=== PATIENT | female | born 1965 | race Caucasian/White ===

== ENCOUNTER 2017-09-19 16:44 | Inpatient (IN) | payer OTHER ==
[2017-09-19 21:20] LABS: ADD MAN DIFF? NO
[2017-09-19 21:26] LABS: WHITE BLOOD COUNT 5.8 10^3/ul (4.8-10.8)
[2017-09-19 21:26] LABS: BASOPHILS % 0.5 % (0.0-2.0); EOSINOPHILS # 0.2 10^3/ul (0.0-0.5); EOSINOPHILS % 2.7 % (0.0-7.0); HEMATOCRIT 31.7 % (37.0-47.0); HEMOGLOBIN 10.1 g/dl (12.0-16.0); LYMPHOCYTES # 1.1 10^3/ul (0.8-2.9); LYMPHOCYTES % 18.5 % (15.0-51.0); MEAN CORPUSCULAR HEMOGLOBIN 29.4 pg (29.0-33.0); MEAN CORPUSCULAR HGB CONC 31.9 g/dl (32.0-37.0); MEAN CORPUSCULAR VOLUME 92.4 fl (82.0-101.0); MEAN PLATELET VOLUME 10.1 fl (7.4-10.4); MONOCYTE # 0.5 10^3/ul (0.3-0.9); MONOCYTES % 8.2 % (0.0-11.0); NEUTROPHILS % 69.4 % (39.0-77.0); PLATELET COUNT 158 10^3/UL (140-415); RED BLOOD COUNT 3.43 10^6/ul (4.20-5.40); RED CELL DISTRIBUTION WIDTH 15.4 % (11.5-14.5)
[2017-09-19 21:47] LABS: ALANINE AMINOTRANSFERASE 32 IU/L (13-69); ALBUMIN 4.6 g/dl (3.3-4.9); ALBUMIN/GLOBULIN RATIO 1.39; ALKALINE PHOSPHATASE 67 IU/L (42-121); ANION GAP 17 (8-16); ASPARTATE AMINO TRANSFERASE 28 IU/L (15-46); BILIRUBIN,INDIRECT 0.6 mg/dl (0-1.1); BILIRUBIN,TOTAL 0.6 mg/dl (0.2-1.3); BLOOD UREA NITROGEN 48 mg/dl (7-20); CALCIUM 9.5 mg/dl (8.4-10.2); CARBON DIOXIDE 22 mmol/L (21-31); CHLORIDE 109 mmol/L (97-110); CREATINE KINASE 56 IU/L (23-200); CREATININE 2.49 mg/dl (0.44-1.00); GLUCOSE 123 mg/dl (70-220); SODIUM 142 mmol/L (135-144); TOTAL PROTEIN 7.9 g/dl (6.1-8.1)
[2017-09-19 21:50] LABS: INR 3.02; PROTIME 32.2 Sec (11.9-14.9); PT RATIO 2.5
[2017-09-19 21:51] LABS: PARTIAL THROMBOPLASTIN TIME 43.8 Sec (25.0-35.0)
[2017-09-19 21:58] LABS: CK INDEX 0.8; CK-MB 0.47 ng/ml (0.0-2.4); TROPONIN-I < 0.010 ng/ml (0.000-0.120)
[2017-09-19] MEDS: ALBUTEROL 0.5% (NEB) 2.5 MG/0.5 ML AMP INH (23:26)
[2017-09-19] MEDS: CA CHLORIDE 10% 10 ML SYRINGE IV (23:40)
[2017-09-19] MEDS: NA BICARBONATE 8.4% 50 ML SYG IV (23:40)
[2017-09-19] MEDS: NA POLYST SULFON 15 GM/60 ML BTL PO (23:46)
[2017-09-20] MEDS ORDERED: DOCUSATE SODIUM 100 MG CAP PO
[2017-09-20] MEDS ORDERED: morphine 2 MG INJ IV
[2017-09-20] MEDS ORDERED: ONDANSETRON 4 MG INJ IV
[2017-09-20] MEDS ORDERED: BISACODYL (EC) 5 MG TAB PO
[2017-09-20] MEDS ORDERED: NACL 0.9% 3 ML SYG IV
[2017-09-20] MEDS: FUROSEMIDE 40 MG INJ IV (00:10)
[2017-09-20 00:31] LABS: URINE BLOOD (Dip) POC Trace-intact (NEGATIVE); URINE GLUCOSE (Dip) POC Negative (NEGATIVE); URINE KETONES (Dip) POC Negative (NEGATIVE); URINE LEUKOCYTE EST (Dip) POC Negative (NEGATIVE); URINE NITRITE (Dip) POC Negative (NEGATIVE); URINE TOTAL PROTEIN POC 1+ (NEGATIVE)
[2017-09-20 02:25] LABS: OSMOLALITY 314 mOsm/kg (280-295)
[2017-09-20] MEDS: ALBUMIN HUMAN 25% 100 ML IV ×2 (02:43→04:04)
[2017-09-20 03:20] LABS: ANION GAP 18 (8-16); BLOOD UREA NITROGEN 47 mg/dl (7-20); CALCIUM 10.9 mg/dl (8.4-10.2); CARBON DIOXIDE 24 mmol/L (21-31); CHLORIDE 108 mmol/L (97-110); CREATININE 2.26 mg/dl (0.44-1.00); GLUCOSE 201 mg/dl (70-220); POTASSIUM 5.8 mmol/L (3.5-5.1); SODIUM 144 mmol/L (135-144)
[2017-09-20] MEDS ORDERED: GLUCOSE GEL 15 GRAM TUBE BUCCAL (03:30)
[2017-09-20] MEDS ORDERED: GLUCOSE GEL 15 GRAM TUBE PO ×2 (03:30)
[2017-09-20] MEDS ORDERED: HYDROCODONE/APAP (5/325) TAB PO (03:30)
[2017-09-20] MEDS ORDERED: GLUCAGON 1 MG INJ IM (03:30)
[2017-09-20] MEDS ORDERED: DEXTROSE 50% 50 ML SYRINGE IV ×2 (03:30)
[2017-09-20] MEDS: NA POLYST SULFON 15 GM/60 ML BTL PO (04:01)
[2017-09-20] MEDS: LEVOTHYROXINE 50 MCG TAB PO (06:08)
[2017-09-20] MEDS: FUROSEMIDE 40 MG TAB PO ×2 (06:08→17:49)
[2017-09-20] MEDS: INSULIN ASPART [NOVOLOG] 3 ML PEN SC ×5 (08:00→21:29)
[2017-09-20 09:26] LABS: ADD MAN DIFF? NO
[2017-09-20 09:33] LABS: HEMATOCRIT 27.6 % (37.0-47.0); HEMOGLOBIN 8.7 g/dl (12.0-16.0); MEAN CORPUSCULAR HEMOGLOBIN 29.3 pg (29.0-33.0); MEAN CORPUSCULAR HGB CONC 31.5 g/dl (32.0-37.0); MEAN CORPUSCULAR VOLUME 92.9 fl (82.0-101.0); RED BLOOD COUNT 2.97 10^6/ul (4.20-5.40)
[2017-09-20 09:34] LABS: BASOPHILS % 0.6 % (0.0-2.0); EOSINOPHILS # 0.1 10^3/ul (0.0-0.5); EOSINOPHILS % 2.8 % (0.0-7.0); LYMPHOCYTES # 1.1 10^3/ul (0.8-2.9); LYMPHOCYTES % 22.6 % (15.0-51.0); MEAN PLATELET VOLUME 10.7 fl (7.4-10.4); MONOCYTE # 0.5 10^3/ul (0.3-0.9); MONOCYTES % 9.4 % (0.0-11.0); NEUTROPHIL # 3.2 10^3/ul (1.6-7.5); PLATELET COUNT 135 10^3/UL (140-415); RED CELL DISTRIBUTION WIDTH 15.5 % (11.5-14.5)
[2017-09-20] MEDS: DIGOXIN 0.125 MG TAB PO ×2 (09:43→12:43)
[2017-09-20 09:57] LABS: HEMOGLOBIN A1C 9.4 % (0-5.9)
[2017-09-20 10:17] LABS: ALANINE AMINOTRANSFERASE 32 IU/L (13-69); ALBUMIN 4.6 g/dl (3.3-4.9); ALBUMIN/GLOBULIN RATIO 1.53; ALKALINE PHOSPHATASE 52 IU/L (42-121); ANION GAP 19 (8-16); ASPARTATE AMINO TRANSFERASE 29 IU/L (15-46); BILIRUBIN,INDIRECT 0.8 mg/dl (0-1.1); BILIRUBIN,TOTAL 0.8 mg/dl (0.2-1.3); BLOOD UREA NITROGEN 42 mg/dl (7-20); CARBON DIOXIDE 23 mmol/L (21-31); CHLORIDE 108 mmol/L (97-110); CREATININE 1.93 mg/dl (0.44-1.00); GLUCOSE 105 mg/dl (70-220); MAGNESIUM 2.2 mg/dl (1.7-2.5); SODIUM 145 mmol/L (135-144); TOTAL PROTEIN 7.6 g/dl (6.1-8.1)
[2017-09-20 11:13] LABS: B-TYPE NATRIURETIC PEPTIDE 1740 PG/ML (0-125)
[2017-09-20 11:53] LABS: ADD UMIC YES; UR ASCORBIC ACID 40 mg/dL (NEGATIVE); UR BILIRUBIN (Dip) NEGATIVE (NEGATIVE); UR BLOOD (Dip) NEGATIVE (NEGATIVE); UR CLARITY CLEAR (CLEAR); UR COLOR YELLOW (YELLOW); UR GLUCOSE (Dip) 1+ mg/dL (NEGATIVE); UR KETONES (Dip) NEGATIVE (NEGATIVE); UR LEUKOCYTE ESTERASE (Dip) NEGATIVE Leu/ul (NEGATIVE); UR NITRITE (Dip) NEGATIVE (NEGATIVE); UR RBC 1 /HPF (0-5); UR SPECIFIC GRAVITY (Dip) 1.013 (1.003-1.030); UR TOTAL PROTEIN (Dip) 1+ mg/dl (NEGATIVE); UR UROBILINOGEN (Dip) NEGATIVE (NEGATIVE); UR WBC 1 /HPF (0-5)
[2017-09-20 12:28] LABS: IRON 79 ug/dl (35-150)
[2017-09-20 12:37] LABS: % IRON SATURATION 25 % SAT (22-52); TOTAL IRON BINDING CAPACITY 316 ug/dl (241-421)
[2017-09-20 12:44] LABS: OSMOLALITY,URINE 454 mOsm/kg (250-1200); SODIUM,URINE RANDOM 92 mmol/L (30-90)
[2017-09-20 12:44] LABS: CREATININE,URINE RANDOM 83.06 mg/dl (20-320)
[2017-09-20 15:27] LABS: ANION GAP 16 (8-16); BLOOD UREA NITROGEN 41 mg/dl (7-20); CALCIUM 9.7 mg/dl (8.4-10.2); CARBON DIOXIDE 26 mmol/L (21-31); CHLORIDE 105 mmol/L (97-110); CREATININE 1.72 mg/dl (0.44-1.00); GLUCOSE 255 mg/dl (70-220); POTASSIUM 5.4 mmol/L (3.5-5.1); SODIUM 142 mmol/L (135-144)
[2017-09-20 18:10] LABS: ADD UMIC YES; UR ASCORBIC ACID 20 mg/dL (NEGATIVE); UR BILIRUBIN (Dip) NEGATIVE (NEGATIVE); UR BLOOD (Dip) NEGATIVE (NEGATIVE); UR CLARITY CLEAR (CLEAR); UR COLOR YELLOW (YELLOW); UR GLUCOSE (Dip) 1+ mg/dL (NEGATIVE); UR KETONES (Dip) NEGATIVE (NEGATIVE); UR LEUKOCYTE ESTERASE (Dip) NEGATIVE Leu/ul (NEGATIVE); UR NITRITE (Dip) NEGATIVE (NEGATIVE); UR RBC 1 /HPF (0-5); UR SPECIFIC GRAVITY (Dip) 1.012 (1.003-1.030); UR TOTAL PROTEIN (Dip) 1+ mg/dl (NEGATIVE); UR UROBILINOGEN (Dip) NEGATIVE (NEGATIVE); UR WBC 1 /HPF (0-5)
[2017-09-20] MEDS: WARFARIN 3 MG TAB PO (18:45)
[2017-09-20] MEDS: ATORVASTATIN 10 MG TAB PO (21:15)
[2017-09-20] MEDS: INSULIN GLARGINE [LANTus] (100 UNITS/ML) SYG SC (21:35)
[2017-09-20] MEDS: ACETAMINOPHEN 325 MG TAB PO (22:17)
[2017-09-21] MEDS ORDERED: ACCU-CHEK XX (02:00)
[2017-09-21] MEDS: ACCU-CHEK XX (02:26)
[2017-09-21] MEDS: FUROSEMIDE 40 MG TAB PO ×2 (06:14→17:23)
[2017-09-21] MEDS: LEVOTHYROXINE 50 MCG TAB PO (06:14)
[2017-09-21] MEDS: INSULIN ASPART [NOVOLOG] 3 ML PEN SC ×6 (08:18→17:18)
[2017-09-21 08:44] LABS: ADD MAN DIFF? NO
[2017-09-21 09:01] LABS: WHITE BLOOD COUNT 4.5 10^3/ul (4.8-10.8)
[2017-09-21 09:01] LABS: BASOPHILS % 0.7 % (0.0-2.0); EOSINOPHILS # 0.2 10^3/ul (0.0-0.5); EOSINOPHILS % 3.3 % (0.0-7.0); HEMATOCRIT 29.9 % (37.0-47.0); HEMOGLOBIN 9.3 g/dl (12.0-16.0); LYMPHOCYTES % 22.5 % (15.0-51.0); MEAN CORPUSCULAR HEMOGLOBIN 28.8 pg (29.0-33.0); MEAN CORPUSCULAR HGB CONC 31.1 g/dl (32.0-37.0); MEAN CORPUSCULAR VOLUME 92.6 fl (82.0-101.0); MEAN PLATELET VOLUME 10.4 fl (7.4-10.4); MONOCYTE # 0.5 10^3/ul (0.3-0.9); MONOCYTES % 10.8 % (0.0-11.0); NEUTROPHIL # 2.8 10^3/ul (1.6-7.5); NEUTROPHILS % 62.3 % (39.0-77.0); PLATELET COUNT 148 10^3/UL (140-415); RED BLOOD COUNT 3.23 10^6/ul (4.20-5.40); RED CELL DISTRIBUTION WIDTH 15.3 % (11.5-14.5)
[2017-09-21 09:09] LABS: ANION GAP 18 (8-16); BLOOD UREA NITROGEN 37 mg/dl (7-20); CALCIUM 9.6 mg/dl (8.4-10.2); CARBON DIOXIDE 26 mmol/L (21-31); CHLORIDE 104 mmol/L (97-110); CREATININE 1.39 mg/dl (0.44-1.00); GLUCOSE 153 mg/dl (70-220); MAGNESIUM 1.7 mg/dl (1.7-2.5); PHOSPHORUS 5.3 mg/dl (2.5-4.9); POTASSIUM 4.5 mmol/L (3.5-5.1); SODIUM 143 mmol/L (135-144)
[2017-09-21 09:19] LABS: INR 2.45; PROTIME 27.2 Sec (11.9-14.9); PT RATIO 2.1
[2017-09-21] MEDS: ACETAMINOPHEN 325 MG TAB PO (11:13)
[2017-09-21 16:52] LABS: CREATININE, RANDOM URINE 105 mg/dL (20-320); MICROALBUMIN 17.4 mg/dL; MICROALBUMIN/CREATININE RATIO 166 (<30)
[2017-09-21] MEDS: WARFARIN 3 MG TAB PO (17:23)
== END 2017-09-21 19:57 | disposition home or self-care (01) | DRG 683 ==
LOC: MS4 09-20 01:23 → E/R 16:44
DX: N17.9 Acute kidney failure, unspecified (principal); I13.0 Hypertensive heart and chronic kidney disease with heart failure and stage 1 through stage 4 chronic kidney disease, or unspecified chronic kidney disease; E87.0 Hyperosmolality and hypernatremia; E87.5 Hyperkalemia; E11.22 Type 2 diabetes mellitus with diabetic chronic kidney disease; R16.1 Splenomegaly, not elsewhere classified; I50.9 Heart failure, unspecified; I48.2 Chronic atrial fibrillation; D64.9 Anemia, unspecified; N18.4 Chronic kidney disease, stage 4 (severe); Z79.4 Long term (current) use of insulin; Z79.01 Long term (current) use of anticoagulants; Z95.2 Presence of prosthetic heart valve; Z90.49 Acquired absence of other specified parts of digestive tract
CPT/HCPCS: 71045; 74176; 76775; 80048; 80053; 81001; 81003; 82043; 82306; 82550; 82553; 82652; 82962; 83036; 83540; 83735; 83880; 83930; 83935; 84100; 84155; 84300; 84443; 84484; 85025; 85610; 85730; 93005; 93306; 94644; 96374; 96375; 99285-25

== ENCOUNTER 2017-10-22 07:21 | Day surgery (SDC) | payer OTHER ==
[2017-10-22] MEDS ORDERED: ONDANSETRON 4 MG INJ (08:13)
[2017-10-22] MEDS ORDERED: PROPOFOL 20 ML (09:00)
== END 2017-10-22 11:34 | disposition home or self-care (01) ==
LOC: GIL 07:21
DX: R19.5 Other fecal abnormalities (principal); K64.8 Other hemorrhoids; K64.4 Residual hemorrhoidal skin tags; I10 Essential (primary) hypertension; E78.5 Hyperlipidemia, unspecified; E11.9 Type 2 diabetes mellitus without complications
CPT/HCPCS: 45378; 82962

== ENCOUNTER 2018-05-27 16:33 | Inpatient (IN) | payer OTHER ==
[2018-05-27] MEDS: INSULIN ASPART [NOVOLOG] 3 ML PEN SC ×3 (08:00→18:00)
[2018-05-27 18:06] LABS: ADD MAN DIFF? NO
[2018-05-27 18:10] LABS: WHITE BLOOD COUNT 6.4 10^3/ul (4.8-10.8)
[2018-05-27 18:10] LABS: BASOPHILS % 0.6 % (0.0-2.0); EOSINOPHILS # 0.1 10^3/ul (0.0-0.5); EOSINOPHILS % 1.7 % (0.0-7.0); HEMATOCRIT 44.5 % (37.0-47.0); HEMOGLOBIN 13.4 g/dl (12.0-16.0); LYMPHOCYTES % 15.2 % (15.0-51.0); MEAN CORPUSCULAR HEMOGLOBIN 25.3 pg (29.0-33.0); MEAN CORPUSCULAR HGB CONC 30.1 g/dl (32.0-37.0); MEAN PLATELET VOLUME 10.3 fl (7.4-10.4); MONOCYTE # 0.6 10^3/ul (0.3-0.9); MONOCYTES % 9.7 % (0.0-11.0); NEUTROPHIL # 4.6 10^3/ul (1.6-7.5); NEUTROPHILS % 72.3 % (39.0-77.0); PLATELET COUNT 288 10^3/UL (140-415); RED CELL DISTRIBUTION WIDTH 16.7 % (11.5-14.5)
[2018-05-27] MEDS: FUROSEMIDE 40 MG INJ IV (18:12)
[2018-05-27 18:24] LABS: INR 3.47; PARTIAL THROMBOPLASTIN TIME 43.3 Sec (23.0-35.0); PROTIME 34.9 Sec (11.9-14.9); PT RATIO 2.7
[2018-05-27 18:29] LABS: ALANINE AMINOTRANSFERASE 15 IU/L (13-69); ALBUMIN 3.9 g/dl (3.3-4.9); ALBUMIN/GLOBULIN RATIO 1.05; ALKALINE PHOSPHATASE 96 IU/L (42-121); ANION GAP 14 (5-13); ASPARTATE AMINO TRANSFERASE 21 IU/L (15-46); BILIRUBIN,INDIRECT 0.9 mg/dl (0-1.1); BILIRUBIN,TOTAL 0.9 mg/dl (0.2-1.3); BLOOD UREA NITROGEN 18 mg/dl (7-20); CALCIUM 9.1 mg/dl (8.4-10.2); CARBON DIOXIDE 31 mmol/L (21-31); CHLORIDE 94 mmol/L (97-110); CREATININE 0.84 mg/dl (0.44-1.00); Estimated GFR > 60 mL/min (>60); LIPASE 156 U/L (23-300); POTASSIUM 4.7 mmol/L (3.5-5.1); SODIUM 139 mmol/L (135-144); TOTAL PROTEIN 7.6 g/dl (6.1-8.1)
[2018-05-27 18:32] LABS: GLUCOSE 403 mg/dl (70-220)
[2018-05-27 18:53] LABS: TROPONIN-I < 0.012 ng/ml (0.000-0.120)
[2018-05-27] MEDS ORDERED: ACETAMINOPHEN 325 MG TAB PO (19:00)
[2018-05-27] MEDS ORDERED: ONDANSETRON 4 MG INJ IV ×2 (19:00→20:30)
[2018-05-27] MEDS: ASPIRIN 81 MG TAB PO (19:12)
[2018-05-27] MEDS: INSULIN LISPRO 100 UNIT/ML VIAL SC (19:14)
[2018-05-27] MEDS ORDERED: NACL 0.9% 3 ML SYG IV (20:30)
[2018-05-27] MEDS ORDERED: BISACODYL (EC) 5 MG TAB PO (20:30)
[2018-05-27] MEDS ORDERED: DOCUSATE SODIUM 100 MG CAP PO (20:30)
[2018-05-27] MEDS ORDERED: INSULIN GLARGINE [LANtus] 3 ML PEN SC ×2 (21:00→22:08)
[2018-05-27] MEDS: ATORVASTATIN 10 MG TAB PO (23:20)
[2018-05-28] MEDS: INSULIN GLARGINE [LANTus] (100 UNITS/ML) SYG SC (01:52)
[2018-05-28] MEDS: ACCU-CHEK XX (02:44)
[2018-05-28 06:12] LABS: ADD MAN DIFF? NO; HAAIG REFLEX REFLEX FILED
[2018-05-28 06:24] LABS: BASOPHILS % 0.7 % (0.0-2.0); EOSINOPHILS # 0.2 10^3/ul (0.0-0.5); HEMATOCRIT 40.4 % (37.0-47.0); LYMPHOCYTES # 0.9 10^3/ul (0.8-2.9); LYMPHOCYTES % 15.6 % (15.0-51.0); MEAN CORPUSCULAR HEMOGLOBIN 25.2 pg (29.0-33.0); MEAN CORPUSCULAR HGB CONC 29.7 g/dl (32.0-37.0); MEAN CORPUSCULAR VOLUME 84.7 fl (82.0-101.0); MEAN PLATELET VOLUME 10.4 fl (7.4-10.4); MONOCYTE # 0.6 10^3/ul (0.3-0.9); MONOCYTES % 10.6 % (0.0-11.0); NEUTROPHIL # 4.2 10^3/ul (1.6-7.5); NEUTROPHILS % 69.8 % (39.0-77.0); PLATELET COUNT 268 10^3/UL (140-415); RED BLOOD COUNT 4.77 10^6/ul (4.20-5.40)
[2018-05-28 06:35] LABS: INR 3.68; PROTIME 36.5 Sec (11.9-14.9); PT RATIO 2.9
[2018-05-28] MEDS: FUROSEMIDE 40 MG INJ IV ×2 (06:52→17:22)
[2018-05-28 06:59] LABS: ALANINE AMINOTRANSFERASE 11 IU/L (13-69); ALBUMIN 3.5 g/dl (3.3-4.9); ALBUMIN/GLOBULIN RATIO 1.02; ALKALINE PHOSPHATASE 83 IU/L (42-121); ANION GAP 13 (5-13); ASPARTATE AMINO TRANSFERASE 19 IU/L (15-46); BILIRUBIN,INDIRECT 0.6 mg/dl (0-1.1); BILIRUBIN,TOTAL 0.6 mg/dl (0.2-1.3); BLOOD UREA NITROGEN 20 mg/dl (7-20); CALCIUM 8.9 mg/dl (8.4-10.2); CARBON DIOXIDE 30 mmol/L (21-31); CHLORIDE 97 mmol/L (97-110); CHOL/HDL RATIO 5.8 RATIO; CHOLESTEROL 99 mg/dl (100-200); CREATININE 0.85 mg/dl (0.44-1.00); Estimated GFR > 60 mL/min (>60); GLUCOSE 221 mg/dl (70-220); HDL CHOLESTEROL 17 mg/dl (37-92); LDL CHOLESTEROL,CALCULATED 51 mg/dl; MAGNESIUM 1.9 mg/dl (1.7-2.5); POTASSIUM 4.1 mmol/L (3.5-5.1); SODIUM 140 mmol/L (135-144); TOTAL PROTEIN 6.9 g/dl (6.1-8.1); TRIGLYCERIDES 156 mg/dl (0-149)
[2018-05-28 07:05] LABS: HEPATITIS B SURFACE ANTIGEN NEGATIVE (NEGATIVE)
[2018-05-28 07:23] LABS: HEPATITIS B CORE ANTIBODY NEGATIVE (NEGATIVE); HEPATITIS C VIRAL ANTIBODY NEGATIVE (NEGATIVE)
[2018-05-28 07:23] LABS: HEPATITIS B SURFACE ANTIBODY NEGATIVE (NEGATIVE)
[2018-05-28] MEDS: INSULIN ASPART [NOVOLOG] 3 ML PEN SC ×8 (08:01→21:00)
[2018-05-28] MEDS: LORATADINE 10 MG TAB PO (08:59)
[2018-05-28] MEDS: FERROUS SULFATE (EC) 325 MG TAB PO (08:59)
[2018-05-28] MEDS: LISINOPRIL 5 MG TAB PO (09:00)
[2018-05-28] MEDS: SPIRONOLACTONE 25 MG TAB PO ×2 (10:05→21:01)
[2018-05-28 10:14] LABS: FREE T3 4.55 pg/ml (2.77-5.27); FREE T4 (FREE THYROXINE) 1.59 ng/dl (0.64-1.79)
[2018-05-28 10:15] LABS: B-TYPE NATRIURETIC PEPTIDE 4170 PG/ML (0-125)
[2018-05-28] MEDS: ACETAMINOPHEN 325 MG TAB PO (10:32)
[2018-05-28] MEDS: DIGOXIN 0.125 MG TAB PO (12:24)
[2018-05-28] MEDS ORDERED: GLUCAGON 1 MG INJ IM (13:00)
[2018-05-28] MEDS ORDERED: GLUCOSE GEL 15 GRAM TUBE BUCCAL (13:00)
[2018-05-28] MEDS ORDERED: DEXTROSE 50% 50 ML SYRINGE IV ×2 (13:00)
[2018-05-28] MEDS ORDERED: GLUCOSE GEL 15 GRAM TUBE PO ×2 (13:00)
[2018-05-28 14:58] LABS: CREATINE KINASE 35 IU/L (23-200)
[2018-05-28 15:11] LABS: CK INDEX 1.2; CK-MB 0.42 ng/ml (0.0-2.4); TROPONIN-I < 0.012 ng/ml (0.000-0.120)
[2018-05-28 18:17] LABS: ADD UMIC YES; UR ASCORBIC ACID NEGATIVE (NEGATIVE); UR BACTERIA FEW /HPF (NONE SEEN); UR BILIRUBIN (Dip) NEGATIVE (NEGATIVE); UR BLOOD (Dip) 1+ mg/dL (NEGATIVE); UR CLARITY SLIGHTLY CLOUDY (CLEAR); UR COLOR YELLOW (YELLOW); UR GLUCOSE (Dip) NEGATIVE (NEGATIVE); UR KETONES (Dip) NEGATIVE (NEGATIVE); UR LEUKOCYTE ESTERASE (Dip) TRACE Leu/ul (NEGATIVE); UR NITRITE (Dip) NEGATIVE (NEGATIVE); UR RBC 3 /HPF (0-5); UR SPECIFIC GRAVITY (Dip) 1.019 (1.003-1.030); UR SQUAMOUS EPITHELIAL CELL FEW /HPF (FEW); UR TOTAL PROTEIN (Dip) 2+ mg/dl (NEGATIVE); UR UROBILINOGEN (Dip) NEGATIVE (NEGATIVE); UR WBC 3 /HPF (0-5)
[2018-05-28 18:43] LABS: CREATINE KINASE 32 IU/L (23-200)
[2018-05-28 18:55] LABS: CK INDEX 1.4; CK-MB 0.44 ng/ml (0.0-2.4); TROPONIN-I < 0.012 ng/ml (0.000-0.120)
[2018-05-28 19:47] LABS: CREATININE,URINE RANDOM 188.26 mg/dl (20-320)
[2018-05-28 19:47] LABS: SODIUM,URINE RANDOM 28 mmol/L (30-90)
[2018-05-28] MEDS ORDERED: INSULIN GLARGINE [LANtus] 3 ML PEN SC (20:00)
[2018-05-28] MEDS: METOLAZONE 5 MG TAB PO (21:01)
[2018-05-28] MEDS: ATORVASTATIN 10 MG TAB PO (21:01)
[2018-05-29] MEDS: ACCU-CHEK XX (02:00)
[2018-05-29 05:32] LABS: ADD MAN DIFF? NO
[2018-05-29 05:38] LABS: WHITE BLOOD COUNT 5.8 10^3/ul (4.8-10.8)
[2018-05-29 05:38] LABS: BASOPHIL # 0.1 10^3/ul (0.0-0.1); EOSINOPHILS # 0.2 10^3/ul (0.0-0.5); EOSINOPHILS % 2.9 % (0.0-7.0); HEMOGLOBIN 12.3 g/dl (12.0-16.0); LYMPHOCYTES # 1.2 10^3/ul (0.8-2.9); LYMPHOCYTES % 21.1 % (15.0-51.0); MEAN CORPUSCULAR HEMOGLOBIN 25.1 pg (29.0-33.0); MEAN CORPUSCULAR VOLUME 83.7 fl (82.0-101.0); MEAN PLATELET VOLUME 10.3 fl (7.4-10.4); MONOCYTE # 0.6 10^3/ul (0.3-0.9); MONOCYTES % 10.9 % (0.0-11.0); NEUTROPHIL # 3.7 10^3/ul (1.6-7.5); NEUTROPHILS % 63.8 % (39.0-77.0); PLATELET COUNT 280 10^3/UL (140-415); RED CELL DISTRIBUTION WIDTH 17.1 % (11.5-14.5)
[2018-05-29] MEDS: FUROSEMIDE 40 MG INJ IV ×2 (05:43→17:27)
[2018-05-29 05:57] LABS: INR 3.13; PROTIME 32.2 Sec (11.9-14.9); PT RATIO 2.5
[2018-05-29 06:13] LABS: PHOSPHORUS 4.8 mg/dl (2.5-4.9)
[2018-05-29 06:13] LABS: MAGNESIUM 1.8 mg/dl (1.7-2.5)
[2018-05-29 06:16] LABS: ALANINE AMINOTRANSFERASE 13 IU/L (13-69); ALBUMIN 3.3 g/dl (3.3-4.9); ALBUMIN/GLOBULIN RATIO 0.97; ALKALINE PHOSPHATASE 82 IU/L (42-121); ANION GAP 7 (5-13); ASPARTATE AMINO TRANSFERASE 24 IU/L (15-46); BILIRUBIN,INDIRECT 0.7 mg/dl (0-1.1); BILIRUBIN,TOTAL 0.7 mg/dl (0.2-1.3); BLOOD UREA NITROGEN 23 mg/dl (7-20); CALCIUM 8.9 mg/dl (8.4-10.2); CARBON DIOXIDE 33 mmol/L (21-31); CHLORIDE 99 mmol/L (97-110); CREATININE 0.94 mg/dl (0.44-1.00); Estimated GFR > 60 mL/min (>60); GLUCOSE 80 mg/dl (70-220); POTASSIUM 4.3 mmol/L (3.5-5.1); SODIUM 139 mmol/L (135-144); TOTAL PROTEIN 6.7 g/dl (6.1-8.1)
[2018-05-29] MEDS: INSULIN ASPART [NOVOLOG] 3 ML PEN SC ×7 (08:00→20:27)
[2018-05-29] MEDS: FERROUS SULFATE (EC) 325 MG TAB PO (08:11)
[2018-05-29] MEDS: SPIRONOLACTONE 25 MG TAB PO ×2 (08:11→20:27)
[2018-05-29] MEDS: LISINOPRIL 5 MG TAB PO (08:12)
[2018-05-29] MEDS: LORATADINE 10 MG TAB PO (08:12)
[2018-05-29] MEDS: INSULIN GLARGINE [LANTus] (100 UNITS/ML) SYG SC (08:22)
[2018-05-29] MEDS: ACETAZOLAMIDE 500 MG INJ IV (11:25)
[2018-05-29] MEDS: DIGOXIN 0.125 MG TAB PO (12:33)
[2018-05-29 17:51] LABS: CREATININE, RANDOM URINE 177 mg/dL (20-275); MICROALBUMIN 31.6 mg/dL; MICROALBUMIN/CREATININE RATIO 179 (<30)
[2018-05-29] MEDS: ATORVASTATIN 10 MG TAB PO (20:27)
[2018-05-30] MEDS: ACCU-CHEK XX (02:00)
[2018-05-30 05:40] LABS: ADD MAN DIFF? NO
[2018-05-30 05:49] LABS: WHITE BLOOD COUNT 5.4 10^3/ul (4.8-10.8)
[2018-05-30 05:49] LABS: BASOPHIL # 0.1 10^3/ul (0.0-0.1); BASOPHILS % 1.1 % (0.0-2.0); EOSINOPHILS # 0.1 10^3/ul (0.0-0.5); EOSINOPHILS % 2.4 % (0.0-7.0); HEMATOCRIT 39.8 % (37.0-47.0); LYMPHOCYTES % 18.9 % (15.0-51.0); MEAN CORPUSCULAR HEMOGLOBIN 25.4 pg (29.0-33.0); MEAN CORPUSCULAR HGB CONC 30.2 g/dl (32.0-37.0); MEAN CORPUSCULAR VOLUME 84.3 fl (82.0-101.0); MEAN PLATELET VOLUME 10.3 fl (7.4-10.4); MONOCYTE # 0.7 10^3/ul (0.3-0.9); MONOCYTES % 12.7 % (0.0-11.0); NEUTROPHIL # 3.5 10^3/ul (1.6-7.5); NEUTROPHILS % 64.5 % (39.0-77.0); PLATELET COUNT 277 10^3/UL (140-415); RED BLOOD COUNT 4.72 10^6/ul (4.20-5.40); RED CELL DISTRIBUTION WIDTH 17.1 % (11.5-14.5)
[2018-05-30] MEDS: FUROSEMIDE 40 MG INJ IV ×2 (06:00→17:52)
[2018-05-30 06:09] LABS: ALANINE AMINOTRANSFERASE 14 IU/L (13-69); ALBUMIN 3.4 g/dl (3.3-4.9); ALBUMIN/GLOBULIN RATIO 1.06; ALKALINE PHOSPHATASE 90 IU/L (42-121); ANION GAP 7 (5-13); ASPARTATE AMINO TRANSFERASE 27 IU/L (15-46); BILIRUBIN,INDIRECT 0.8 mg/dl (0-1.1); BILIRUBIN,TOTAL 0.8 mg/dl (0.2-1.3); BLOOD UREA NITROGEN 25 mg/dl (7-20); CALCIUM 9.1 mg/dl (8.4-10.2); CARBON DIOXIDE 34 mmol/L (21-31); CHLORIDE 98 mmol/L (97-110); Estimated GFR 58 mL/min (>60); GLUCOSE 66 mg/dl (70-220); POTASSIUM 4.1 mmol/L (3.5-5.1); SODIUM 139 mmol/L (135-144); TOTAL PROTEIN 6.6 g/dl (6.1-8.1)
[2018-05-30 06:12] LABS: INR 2.16; PROTIME 24.2 Sec (11.9-14.9); PT RATIO 1.9
[2018-05-30] MEDS: INSULIN GLARGINE [LANTus] (100 UNITS/ML) SYG SC ×2 (08:00→08:42)
[2018-05-30] MEDS: INSULIN ASPART [NOVOLOG] 3 ML PEN SC ×5 (08:00→20:16)
[2018-05-30] MEDS: ACETAZOLAMIDE 500 MG INJ IV (08:27)
[2018-05-30] MEDS: LORATADINE 10 MG TAB PO (08:30)
[2018-05-30] MEDS: FERROUS SULFATE (EC) 325 MG TAB PO (08:30)
[2018-05-30] MEDS: LISINOPRIL 5 MG TAB PO (08:31)
[2018-05-30] MEDS: SPIRONOLACTONE 25 MG TAB PO ×2 (08:32→20:16)
[2018-05-30] MEDS ORDERED: ACETAZOLAMIDE 500 MG INJ IV (09:00)
[2018-05-30] MEDS: WARFARIN 3 MG TAB PO (11:44)
[2018-05-30] MEDS: DIGOXIN 0.125 MG TAB PO (13:12)
[2018-05-30] MEDS: BARIUM SULF 2% 450 ML BTL (BERRY SMOOTHIE) PO (16:12)
[2018-05-30] MEDS: ATORVASTATIN 10 MG TAB PO (20:16)
[2018-05-31] MEDS: ACCU-CHEK XX (02:00)
[2018-05-31] MEDS: FUROSEMIDE 40 MG INJ IV ×2 (05:45→17:32)
[2018-05-31 06:07] LABS: ADD MAN DIFF? NO
[2018-05-31 06:12] LABS: BASOPHIL # 0.1 10^3/ul (0.0-0.1); BASOPHILS % 1.2 % (0.0-2.0); EOSINOPHILS # 0.2 10^3/ul (0.0-0.5); EOSINOPHILS % 3.5 % (0.0-7.0); HEMATOCRIT 38.8 % (37.0-47.0); HEMOGLOBIN 11.7 g/dl (12.0-16.0); LYMPHOCYTES # 0.9 10^3/ul (0.8-2.9); LYMPHOCYTES % 18.4 % (15.0-51.0); MEAN CORPUSCULAR HEMOGLOBIN 25.4 pg (29.0-33.0); MEAN CORPUSCULAR HGB CONC 30.2 g/dl (32.0-37.0); MEAN CORPUSCULAR VOLUME 84.2 fl (82.0-101.0); MEAN PLATELET VOLUME 10.5 fl (7.4-10.4); MONOCYTE # 0.6 10^3/ul (0.3-0.9); MONOCYTES % 12.1 % (0.0-11.0); NEUTROPHIL # 3.1 10^3/ul (1.6-7.5); NEUTROPHILS % 64.4 % (39.0-77.0); PLATELET COUNT 286 10^3/UL (140-415); RED BLOOD COUNT 4.61 10^6/ul (4.20-5.40); RED CELL DISTRIBUTION WIDTH 17.3 % (11.5-14.5)
[2018-05-31 06:12] LABS: WHITE BLOOD COUNT 4.9 10^3/ul (4.8-10.8)
[2018-05-31 06:43] LABS: INR 1.93; PROTIME 22.1 Sec (11.9-14.9); PT RATIO 1.7
[2018-05-31 06:58] LABS: ALANINE AMINOTRANSFERASE 16 IU/L (13-69); ALBUMIN 3.6 g/dl (3.3-4.9); ALBUMIN/GLOBULIN RATIO 1.02; ALKALINE PHOSPHATASE 101 IU/L (42-121); ANION GAP 12 (5-13); ASPARTATE AMINO TRANSFERASE 25 IU/L (15-46); BILIRUBIN,INDIRECT 0.7 mg/dl (0-1.1); BILIRUBIN,TOTAL 0.7 mg/dl (0.2-1.3); BLOOD UREA NITROGEN 26 mg/dl (7-20); CALCIUM 9.1 mg/dl (8.4-10.2); CARBON DIOXIDE 31 mmol/L (21-31); CHLORIDE 95 mmol/L (97-110); CREATININE 1.04 mg/dl (0.44-1.00); Estimated GFR 55 mL/min (>60); GLUCOSE 148 mg/dl (70-220); POTASSIUM 4.1 mmol/L (3.5-5.1); SODIUM 138 mmol/L (135-144); TOTAL PROTEIN 7.1 g/dl (6.1-8.1)
[2018-05-31] MEDS: INSULIN ASPART [NOVOLOG] 3 ML PEN SC ×4 (07:45→20:18)
[2018-05-31] MEDS: FERROUS SULFATE (EC) 325 MG TAB PO (08:29)
[2018-05-31] MEDS: ACETAZOLAMIDE 500 MG INJ IV (08:29)
[2018-05-31] MEDS: SPIRONOLACTONE 25 MG TAB PO ×2 (08:30→20:11)
[2018-05-31] MEDS: LORATADINE 10 MG TAB PO (08:30)
[2018-05-31] MEDS: LISINOPRIL 5 MG TAB PO (08:31)
[2018-05-31] MEDS: HYDROCODONE/APAP (5/325) TAB PO (09:49)
[2018-05-31] MEDS: LIDOCAINE 1% (MPF) 5 ML VIAL (12:23)
[2018-05-31] MEDS: SOD CHLORIDE 0.9% 250 ML IV* (13:28)
[2018-05-31] MEDS: DIGOXIN 0.125 MG TAB PO (13:42)
[2018-05-31] MEDS: ATORVASTATIN 10 MG TAB PO (20:09)
[2018-05-31 20:27] LABS: TYPE AND SCREEN 1 1
[2018-06-01] MEDS: ACCU-CHEK XX (02:23)
[2018-06-01 06:22] LABS: ADD MAN DIFF? NO
[2018-06-01 06:26] LABS: WHITE BLOOD COUNT 4.8 10^3/ul (4.8-10.8)
[2018-06-01 06:27] LABS: BASOPHIL # 0.1 10^3/ul (0.0-0.1); EOSINOPHILS # 0.1 10^3/ul (0.0-0.5); EOSINOPHILS % 2.9 % (0.0-7.0); HEMATOCRIT 40.1 % (37.0-47.0); HEMOGLOBIN 12.1 g/dl (12.0-16.0); LYMPHOCYTES # 1.1 10^3/ul (0.8-2.9); LYMPHOCYTES % 22.1 % (15.0-51.0); MEAN CORPUSCULAR HEMOGLOBIN 25.5 pg (29.0-33.0); MEAN CORPUSCULAR HGB CONC 30.2 g/dl (32.0-37.0); MEAN CORPUSCULAR VOLUME 84.4 fl (82.0-101.0); MEAN PLATELET VOLUME 10.7 fl (7.4-10.4); MONOCYTE # 0.5 10^3/ul (0.3-0.9); MONOCYTES % 10.3 % (0.0-11.0); NEUTROPHIL # 3.1 10^3/ul (1.6-7.5); NEUTROPHILS % 63.3 % (39.0-77.0); PLATELET COUNT 273 10^3/UL (140-415); RED BLOOD COUNT 4.75 10^6/ul (4.20-5.40); RED CELL DISTRIBUTION WIDTH 17.2 % (11.5-14.5)
[2018-06-01 06:36] LABS: AMMONIA < 9 umol/l (9-30)
[2018-06-01 06:52] LABS: ALANINE AMINOTRANSFERASE 17 IU/L (13-69); ALBUMIN 3.6 g/dl (3.3-4.9); ALBUMIN/GLOBULIN RATIO 1.16; ALKALINE PHOSPHATASE 104 IU/L (42-121); ANION GAP 11 (5-13); ASPARTATE AMINO TRANSFERASE 23 IU/L (15-46); BILIRUBIN,INDIRECT 0.9 mg/dl (0-1.1); BILIRUBIN,TOTAL 0.9 mg/dl (0.2-1.3); BLOOD UREA NITROGEN 28 mg/dl (7-20); CALCIUM 9.3 mg/dl (8.4-10.2); CARBON DIOXIDE 31 mmol/L (21-31); CHLORIDE 96 mmol/L (97-110); CREATININE 1.09 mg/dl (0.44-1.00); Estimated GFR 53 mL/min (>60); GLUCOSE 211 mg/dl (70-220); POTASSIUM 4.4 mmol/L (3.5-5.1); SODIUM 138 mmol/L (135-144); TOTAL PROTEIN 6.7 g/dl (6.1-8.1)
[2018-06-01] MEDS: FUROSEMIDE 40 MG INJ IV ×2 (06:58→17:15)
[2018-06-01 07:21] LABS: INR 1.68; PROTIME 19.9 Sec (11.9-14.9); PT RATIO 1.6
[2018-06-01 07:26] LABS: PHOSPHORUS 4.4 mg/dl (2.5-4.9)
[2018-06-01] MEDS: LORATADINE 10 MG TAB PO (08:59)
[2018-06-01] MEDS: SPIRONOLACTONE 25 MG TAB PO ×2 (08:59→20:08)
[2018-06-01] MEDS: FERROUS SULFATE (EC) 325 MG TAB PO (08:59)
[2018-06-01] MEDS: LISINOPRIL 5 MG TAB PO (09:00)
[2018-06-01] MEDS: INSULIN ASPART [NOVOLOG] 3 ML PEN SC ×4 (09:14→20:15)
[2018-06-01] MEDS: DIGOXIN 0.125 MG TAB PO (12:32)
[2018-06-01] MEDS: SILDENAFIL 20 MG TAB PO ×2 (13:38→20:09)
[2018-06-01] MEDS: LINAGLIPTIN 5 MG TABLET PO (13:38)
[2018-06-01] MEDS ORDERED: INSULIN ASPART [NOVOLOG] 3 ML PEN SC (18:00)
[2018-06-01] MEDS: ATORVASTATIN 10 MG TAB PO (20:09)
[2018-06-01] MEDS: ACETAMINOPHEN 325 MG TAB PO (20:14)
[2018-06-02] MEDS: ACCU-CHEK XX ×2 (02:28)
[2018-06-02] MEDS: FUROSEMIDE 40 MG INJ IV ×2 (05:34→17:12)
[2018-06-02 05:37] LABS: ADD MAN DIFF? NO
[2018-06-02 05:40] LABS: BASOPHIL # 0.1 10^3/ul (0.0-0.1); BASOPHILS % 0.8 % (0.0-2.0); EOSINOPHILS # 0.2 10^3/ul (0.0-0.5); EOSINOPHILS % 2.5 % (0.0-7.0); HEMATOCRIT 38.8 % (37.0-47.0); HEMOGLOBIN 11.7 g/dl (12.0-16.0); LYMPHOCYTES # 1.3 10^3/ul (0.8-2.9); MEAN CORPUSCULAR HEMOGLOBIN 25.3 pg (29.0-33.0); MEAN CORPUSCULAR HGB CONC 30.2 g/dl (32.0-37.0); MEAN CORPUSCULAR VOLUME 83.8 fl (82.0-101.0); MEAN PLATELET VOLUME 10.3 fl (7.4-10.4); MONOCYTE # 0.9 10^3/ul (0.3-0.9); MONOCYTES % 14.3 % (0.0-11.0); NEUTROPHIL # 3.6 10^3/ul (1.6-7.5); NEUTROPHILS % 59.9 % (39.0-77.0); PLATELET COUNT 248 10^3/UL (140-415); RED BLOOD COUNT 4.63 10^6/ul (4.20-5.40); RED CELL DISTRIBUTION WIDTH 17.4 % (11.5-14.5)
[2018-06-02 06:25] LABS: ANION GAP 12 (5-13); BLOOD UREA NITROGEN 34 mg/dl (7-20); CALCIUM 9.3 mg/dl (8.4-10.2); CARBON DIOXIDE 31 mmol/L (21-31); CHLORIDE 95 mmol/L (97-110); CREATININE 1.05 mg/dl (0.44-1.00); Estimated GFR 55 mL/min (>60); GLUCOSE 214 mg/dl (70-220); PHOSPHORUS 4.3 mg/dl (2.5-4.9); POTASSIUM 4.1 mmol/L (3.5-5.1); SODIUM 138 mmol/L (135-144)
[2018-06-02] MEDS: INSULIN ASPART [NOVOLOG] 3 ML PEN SC ×5 (07:35→21:50)
[2018-06-02] MEDS: LISINOPRIL 5 MG TAB PO (08:16)
[2018-06-02] MEDS: SPIRONOLACTONE 25 MG TAB PO ×2 (08:17→20:42)
[2018-06-02] MEDS: LORATADINE 10 MG TAB PO (08:17)
[2018-06-02] MEDS: FERROUS SULFATE (EC) 325 MG TAB PO (08:17)
[2018-06-02] MEDS: SILDENAFIL 20 MG TAB PO ×2 (08:17→12:47)
[2018-06-02] MEDS: LINAGLIPTIN 5 MG TABLET PO (08:18)
[2018-06-02] MEDS: INSULIN GLARGINE [LANTus] (100 UNITS/ML) SYG SC (11:56)
[2018-06-02] MEDS: DIGOXIN 0.125 MG TAB PO (12:47)
[2018-06-02] MEDS: ATORVASTATIN 10 MG TAB PO (20:42)
[2018-06-02] MEDS ORDERED: INSULIN ASPART [NOVOLOG] 3 ML PEN SC (22:00)
[2018-06-02] MEDS: ACETAMINOPHEN 325 MG TAB PO (23:51)
[2018-06-03] MEDS: ACCU-CHEK XX (02:20)
[2018-06-03 06:08] LABS: ADD MAN DIFF? NO
[2018-06-03 06:29] LABS: WHITE BLOOD COUNT 5.6 10^3/ul (4.8-10.8)
[2018-06-03 06:29] LABS: BASOPHILS % 0.7 % (0.0-2.0); EOSINOPHILS # 0.1 10^3/ul (0.0-0.5); EOSINOPHILS % 2.3 % (0.0-7.0); HEMATOCRIT 38.5 % (37.0-47.0); HEMOGLOBIN 11.8 g/dl (12.0-16.0); LYMPHOCYTES # 1.2 10^3/ul (0.8-2.9); LYMPHOCYTES % 21.4 % (15.0-51.0); MEAN CORPUSCULAR HEMOGLOBIN 25.3 pg (29.0-33.0); MEAN CORPUSCULAR HGB CONC 30.6 g/dl (32.0-37.0); MEAN CORPUSCULAR VOLUME 82.6 fl (82.0-101.0); MEAN PLATELET VOLUME 10.7 fl (7.4-10.4); MONOCYTE # 0.6 10^3/ul (0.3-0.9); MONOCYTES % 11.4 % (0.0-11.0); NEUTROPHIL # 3.6 10^3/ul (1.6-7.5); NEUTROPHILS % 63.3 % (39.0-77.0); PLATELET COUNT 252 10^3/UL (140-415); RED BLOOD COUNT 4.66 10^6/ul (4.20-5.40); RED CELL DISTRIBUTION WIDTH 17.2 % (11.5-14.5)
[2018-06-03] MEDS: FUROSEMIDE 40 MG INJ IV ×2 (06:31→17:01)
[2018-06-03 06:36] LABS: INR 1.44; PROTIME 17.6 Sec (11.9-14.9); PT RATIO 1.4
[2018-06-03 06:58] LABS: ANION GAP 9 (5-13); BLOOD UREA NITROGEN 33 mg/dl (7-20); CALCIUM 9.3 mg/dl (8.4-10.2); CARBON DIOXIDE 30 mmol/L (21-31); CHLORIDE 98 mmol/L (97-110); CREATININE 1.01 mg/dl (0.44-1.00); Estimated GFR 57 mL/min (>60); GLUCOSE 193 mg/dl (70-220); PHOSPHORUS 4.2 mg/dl (2.5-4.9); SODIUM 137 mmol/L (135-144)
[2018-06-03] MEDS: INSULIN ASPART [NOVOLOG] 3 ML PEN SC ×4 (07:49→21:57)
[2018-06-03] MEDS: INSULIN GLARGINE [LANTus] (100 UNITS/ML) SYG SC (07:50)
[2018-06-03] MEDS: SPIRONOLACTONE 25 MG TAB PO ×2 (08:36→21:52)
[2018-06-03] MEDS: LORATADINE 10 MG TAB PO (08:36)
[2018-06-03] MEDS: LINAGLIPTIN 5 MG TABLET PO (08:36)
[2018-06-03] MEDS: FERROUS SULFATE (EC) 325 MG TAB PO (08:36)
[2018-06-03] MEDS: LIDOCAINE 1% (MPF) 5 ML VIAL (10:40)
[2018-06-03 11:56] LABS: FLD MN% 86.7 %; FLD PMN% 13.3 %; FLD RBC 28000 /uL; FLD WBC 317 /cmm
[2018-06-03 12:29] LABS: FLD CLARITY CLOUDY; FLD COLOR RED
[2018-06-03 12:29] LABS: FLD TYPE PARACENTHESIS
[2018-06-03] MEDS: DIGOXIN 0.125 MG TAB PO (12:29)
[2018-06-03 12:35] LABS: FLUID LD 240 U/L; FLUID TOTAL PROTEIN 4.5 g/dl; FLUID TYPE PARACENTESIS FLUID
[2018-06-03] MEDS: WARFARIN 5 MG TAB PO (17:00)
[2018-06-03] MEDS: ATORVASTATIN 10 MG TAB PO (21:53)
[2018-06-04] MEDS: ACCU-CHEK XX (02:00)
[2018-06-04] MEDS: FUROSEMIDE 40 MG INJ IV (06:04)
[2018-06-04 06:39] LABS: ADD MAN DIFF? NO
[2018-06-04 06:59] LABS: BASOPHILS % 0.8 % (0.0-2.0); EOSINOPHILS # 0.2 10^3/ul (0.0-0.5); EOSINOPHILS % 3.3 % (0.0-7.0); HEMATOCRIT 38.6 % (37.0-47.0); HEMOGLOBIN 11.8 g/dl (12.0-16.0); LYMPHOCYTES # 1.1 10^3/ul (0.8-2.9); MEAN CORPUSCULAR HEMOGLOBIN 25.4 pg (29.0-33.0); MEAN CORPUSCULAR HGB CONC 30.6 g/dl (32.0-37.0); MEAN CORPUSCULAR VOLUME 83.2 fl (82.0-101.0); MEAN PLATELET VOLUME 10.9 fl (7.4-10.4); MONOCYTE # 0.7 10^3/ul (0.3-0.9); MONOCYTES % 14.1 % (0.0-11.0); NEUTROPHILS % 59.2 % (39.0-77.0); PLATELET COUNT 259 10^3/UL (140-415); RED BLOOD COUNT 4.64 10^6/ul (4.20-5.40); RED CELL DISTRIBUTION WIDTH 17.1 % (11.5-14.5)
[2018-06-04 06:59] LABS: WHITE BLOOD COUNT 5.1 10^3/ul (4.8-10.8)
[2018-06-04 07:19] LABS: ALANINE AMINOTRANSFERASE 14 IU/L (13-69); ALBUMIN 3.7 g/dl (3.3-4.9); ALBUMIN/GLOBULIN RATIO 1.19; ALKALINE PHOSPHATASE 108 IU/L (42-121); ANION GAP 12 (5-13); ASPARTATE AMINO TRANSFERASE 23 IU/L (15-46); BILIRUBIN,INDIRECT 0.7 mg/dl (0-1.1); BILIRUBIN,TOTAL 0.7 mg/dl (0.2-1.3); BLOOD UREA NITROGEN 27 mg/dl (7-20); CALCIUM 9.4 mg/dl (8.4-10.2); CARBON DIOXIDE 31 mmol/L (21-31); CHLORIDE 94 mmol/L (97-110); CREATININE 0.88 mg/dl (0.44-1.00); Estimated GFR > 60 mL/min (>60); GLUCOSE 204 mg/dl (70-220); POTASSIUM 4.3 mmol/L (3.5-5.1); SODIUM 137 mmol/L (135-144); TOTAL PROTEIN 6.8 g/dl (6.1-8.1)
[2018-06-04] MEDS: INSULIN ASPART [NOVOLOG] 3 ML PEN SC ×4 (07:49→22:22)
[2018-06-04] MEDS: LINAGLIPTIN 5 MG TABLET PO (08:02)
[2018-06-04] MEDS: SPIRONOLACTONE 25 MG TAB PO ×2 (08:02→21:45)
[2018-06-04] MEDS: FERROUS SULFATE (EC) 325 MG TAB PO (08:02)
[2018-06-04] MEDS: LORATADINE 10 MG TAB PO (08:05)
[2018-06-04] MEDS: INSULIN GLARGINE [LANTus] (100 UNITS/ML) SYG SC ×2 (08:09→12:21)
[2018-06-04] MEDS: DIGOXIN 0.125 MG TAB PO (12:19)
[2018-06-04] MEDS: WARFARIN 7.5 MG TAB PO (17:33)
[2018-06-04] MEDS: BUMETANIDE 1 MG TAB PO (17:33)
[2018-06-04] MEDS: ATORVASTATIN 10 MG TAB PO (22:03)
[2018-06-05] MEDS: ACCU-CHEK XX (02:00)
[2018-06-05] MEDS: BUMETANIDE 1 MG TAB PO ×2 (05:44→17:07)
[2018-06-05 06:09] LABS: ADD MAN DIFF? NO
[2018-06-05 06:18] LABS: WHITE BLOOD COUNT 5.4 10^3/ul (4.8-10.8)
[2018-06-05 06:18] LABS: BASOPHILS % 0.7 % (0.0-2.0); EOSINOPHILS # 0.2 10^3/ul (0.0-0.5); EOSINOPHILS % 3.5 % (0.0-7.0); HEMATOCRIT 40.6 % (37.0-47.0); HEMOGLOBIN 12.6 g/dl (12.0-16.0); LYMPHOCYTES # 1.2 10^3/ul (0.8-2.9); LYMPHOCYTES % 21.5 % (15.0-51.0); MEAN CORPUSCULAR HEMOGLOBIN 25.6 pg (29.0-33.0); MEAN CORPUSCULAR VOLUME 82.5 fl (82.0-101.0); MEAN PLATELET VOLUME 10.8 fl (7.4-10.4); MONOCYTE # 0.7 10^3/ul (0.3-0.9); MONOCYTES % 11.9 % (0.0-11.0); NEUTROPHIL # 3.4 10^3/ul (1.6-7.5); NEUTROPHILS % 61.7 % (39.0-77.0); PLATELET COUNT 274 10^3/UL (140-415); RED BLOOD COUNT 4.92 10^6/ul (4.20-5.40); RED CELL DISTRIBUTION WIDTH 17.1 % (11.5-14.5)
[2018-06-05 06:36] LABS: INR 1.32; PROTIME 16.5 Sec (11.9-14.9); PT RATIO 1.3
[2018-06-05 06:39] LABS: ANION GAP 13 (5-13); BLOOD UREA NITROGEN 27 mg/dl (7-20); CALCIUM 9.5 mg/dl (8.4-10.2); CARBON DIOXIDE 32 mmol/L (21-31); CHLORIDE 95 mmol/L (97-110); CREATININE 0.87 mg/dl (0.44-1.00); Estimated GFR > 60 mL/min (>60); GLUCOSE 169 mg/dl (70-220); MAGNESIUM 1.7 mg/dl (1.7-2.5); PHOSPHORUS 4.3 mg/dl (2.5-4.9); POTASSIUM 3.8 mmol/L (3.5-5.1); SODIUM 140 mmol/L (135-144)
[2018-06-05] MEDS: FERROUS SULFATE (EC) 325 MG TAB PO (08:04)
[2018-06-05] MEDS: SPIRONOLACTONE 25 MG TAB PO (08:04)
[2018-06-05] MEDS: LORATADINE 10 MG TAB PO (08:04)
[2018-06-05] MEDS: LINAGLIPTIN 5 MG TABLET PO (08:05)
[2018-06-05] MEDS: INSULIN ASPART [NOVOLOG] 3 ML PEN SC ×2 (08:10→12:12)
[2018-06-05] MEDS: INSULIN GLARGINE [LANTus] (100 UNITS/ML) SYG SC (08:11)
[2018-06-05] MEDS ORDERED: WARFARIN 3 MG TAB PO ×2 (09:00→17:00)
[2018-06-05] MEDS: DIGOXIN 0.125 MG TAB PO (12:07)
[2018-06-05] MEDS: WARFARIN 3 MG TAB PO (17:07)
== END 2018-06-05 17:30 | disposition home or self-care (01) | DRG 291 ==
LOC: E/R 16:33 → 6WM 05-28 16:01
PROVIDERS: Family Medicine
PROC: 30233K1 Transfusion of Nonautologous Frozen Plasma into Peripheral Vein, Percutaneous Approach (ICD-10-PCS; principal; 2018-05-31)
PROC: 0W9G3ZZ Drainage of Peritoneal Cavity, Percutaneous Approach (ICD-10-PCS; 2018-05-31)
PROC: 0W9G3ZZ Drainage of Peritoneal Cavity, Percutaneous Approach (ICD-10-PCS; 2018-06-03)
DX: I13.0 Hypertensive heart and chronic kidney disease with heart failure and stage 1 through stage 4 chronic kidney disease, or unspecified chronic kidney disease (principal); I50.23 Acute on chronic systolic (congestive) heart failure; R18.8 Other ascites; E11.22 Type 2 diabetes mellitus with diabetic chronic kidney disease; E11.65 Type 2 diabetes mellitus with hyperglycemia; K75.81 Nonalcoholic steatohepatitis (NASH); N18.9 Chronic kidney disease, unspecified; I48.91 Unspecified atrial fibrillation; Z79.01 Long term (current) use of anticoagulants; I27.20 Pulmonary hypertension, unspecified; Z95.2 Presence of prosthetic heart valve; E02 Subclinical iodine-deficiency hypothyroidism; D50.8 Other iron deficiency anemias; Z79.02 Long term (current) use of antithrombotics/antiplatelets; Z79.4 Long term (current) use of insulin
CPT/HCPCS: 36415; 36430; 71045; 74176; 76705; 80048; 80053; 80061; 80162; 81001; 81003; 82043; 82140; 82550; 82553; 82962; 83036; 83615; 83690; 83735; 83880; 84100; 84155; 84157; 84300; 84439; 84443; 84481; 84484; 85025; 85610; 85730; 86704; 86706; 86709; 86803; 86850; 86900; 86901; 87070; 87102; 87116; 87340; 88104; 88107; 88305; 89051; 93005; 93306; 96374; 97161; 99285-25

== ENCOUNTER 2018-08-09 16:58 | Inpatient (IN) | payer OTHER ==
[2018-08-09 19:13] LABS: ADD MAN DIFF? NO
[2018-08-09 19:15] LABS: BASOPHILS % 0.5 % (0.0-2.0); EOSINOPHILS # 0.1 10^3/ul (0.0-0.5); EOSINOPHILS % 2.4 % (0.0-7.0); HEMATOCRIT 33.5 % (37.0-47.0); HEMOGLOBIN 10.4 g/dl (12.0-16.0); LYMPHOCYTES # 0.9 10^3/ul (0.8-2.9); MEAN CORPUSCULAR HEMOGLOBIN 27.7 pg (29.0-33.0); MEAN CORPUSCULAR VOLUME 89.1 fl (82.0-101.0); MEAN PLATELET VOLUME 10.5 fl (7.4-10.4); MONOCYTE # 0.5 10^3/ul (0.3-0.9); MONOCYTES % 9.3 % (0.0-11.0); NEUTROPHIL # 3.8 10^3/ul (1.6-7.5); NEUTROPHILS % 70.3 % (39.0-77.0); PLATELET COUNT 221 10^3/UL (140-415); RED BLOOD COUNT 3.76 10^6/ul (4.20-5.40); RED CELL DISTRIBUTION WIDTH 18.2 % (11.5-14.5)
[2018-08-09 19:15] LABS: WHITE BLOOD COUNT 5.5 10^3/ul (4.8-10.8)
[2018-08-09 19:19] LABS: INR 2.34; PROTIME 25.7 Sec (11.9-14.9)
[2018-08-09 19:29] LABS: ALANINE AMINOTRANSFERASE 30 IU/L (13-69); ALBUMIN/GLOBULIN RATIO 1.08; ALKALINE PHOSPHATASE 119 IU/L (42-121); ANION GAP 10 (5-13); ASPARTATE AMINO TRANSFERASE 35 IU/L (15-46); BILIRUBIN,INDIRECT 0.6 mg/dl (0-1.1); BILIRUBIN,TOTAL 0.6 mg/dl (0.2-1.3); BLOOD UREA NITROGEN 51 mg/dl (7-20); CALCIUM 9.1 mg/dl (8.4-10.2); CARBON DIOXIDE 23 mmol/L (21-31); CHLORIDE 107 mmol/L (97-110); CREATININE 1.35 mg/dl (0.44-1.00); Estimated GFR 41 mL/min (>60); GLUCOSE 84 mg/dl (70-220); LIPASE 111 U/L (23-300); POTASSIUM 5.4 mmol/L (3.5-5.1); SODIUM 140 mmol/L (135-144); TOTAL PROTEIN 7.7 g/dl (6.1-8.1)
[2018-08-09] MEDS ORDERED: ONDANSETRON 4 MG INJ IV (22:00)
[2018-08-10] MEDS ORDERED: NACL 0.9% 3 ML SYG IV (00:30)
[2018-08-10] MEDS ORDERED: ONDANSETRON 4 MG INJ IV (00:30)
[2018-08-10] MEDS ORDERED: GLUCAGON 1 MG INJ IM (01:00)
[2018-08-10] MEDS ORDERED: DEXTROSE 50% 50 ML SYRINGE IV ×2 (01:00)
[2018-08-10] MEDS ORDERED: GLUCOSE GEL 15 GRAM TUBE BUCCAL (01:00)
[2018-08-10] MEDS ORDERED: GLUCOSE GEL 15 GRAM TUBE PO ×2 (01:00)
[2018-08-10] MEDS: ACCU-CHEK XX (01:10)
[2018-08-10] MEDS: ACETAMINOPHEN 325 MG TAB PO ×2 (01:52→11:57)
[2018-08-10] MEDS: BUMETANIDE 1 MG TAB PO ×2 (05:34→17:47)
[2018-08-10 06:07] LABS: ADD MAN DIFF? NO
[2018-08-10 06:18] LABS: BASOPHIL # 0.1 10^3/ul (0.0-0.1); EOSINOPHILS # 0.2 10^3/ul (0.0-0.5); HEMATOCRIT 33.2 % (37.0-47.0); HEMOGLOBIN 10.2 g/dl (12.0-16.0); LYMPHOCYTES # 1.2 10^3/ul (0.8-2.9); LYMPHOCYTES % 23.9 % (15.0-51.0); MEAN CORPUSCULAR HEMOGLOBIN 27.4 pg (29.0-33.0); MEAN CORPUSCULAR HGB CONC 30.7 g/dl (32.0-37.0); MEAN CORPUSCULAR VOLUME 89.2 fl (82.0-101.0); MEAN PLATELET VOLUME 9.6 fl (7.4-10.4); MONOCYTE # 0.5 10^3/ul (0.3-0.9); MONOCYTES % 9.9 % (0.0-11.0); NEUTROPHIL # 3.1 10^3/ul (1.6-7.5); NEUTROPHILS % 61.8 % (39.0-77.0); PLATELET COUNT 182 10^3/UL (140-415); RED BLOOD COUNT 3.72 10^6/ul (4.20-5.40)
[2018-08-10 06:18] LABS: WHITE BLOOD COUNT 5.1 10^3/ul (4.8-10.8)
[2018-08-10 06:41] LABS: ALANINE AMINOTRANSFERASE 27 IU/L (13-69); ALBUMIN 3.7 g/dl (3.3-4.9); ALBUMIN/GLOBULIN RATIO 1.12; ALKALINE PHOSPHATASE 106 IU/L (42-121); ANION GAP 8 (5-13); ASPARTATE AMINO TRANSFERASE 29 IU/L (15-46); BILIRUBIN,INDIRECT 0.9 mg/dl (0-1.1); BILIRUBIN,TOTAL 0.9 mg/dl (0.2-1.3); BLOOD UREA NITROGEN 46 mg/dl (7-20); CALCIUM 8.9 mg/dl (8.4-10.2); CARBON DIOXIDE 22 mmol/L (21-31); CHLORIDE 110 mmol/L (97-110); Estimated GFR 47 mL/min (>60); GLUCOSE 74 mg/dl (70-220); MAGNESIUM 2.5 mg/dl (1.7-2.5); PHOSPHORUS 4.7 mg/dl (2.5-4.9); POTASSIUM 5.1 mmol/L (3.5-5.1); SODIUM 140 mmol/L (135-144)
[2018-08-10 07:00] LABS: HEMOGLOBIN A1C 9.2 % (0-5.9)
[2018-08-10] MEDS: INSULIN ASPART [NOVOLOG] 3 ML PEN SC ×4 (08:00→20:29)
[2018-08-10] MEDS: LORATADINE 10 MG TAB PO (08:33)
[2018-08-10] MEDS: SILDENAFIL 20 MG TAB PO ×3 (08:33→20:19)
[2018-08-10] MEDS: FERROUS SULFATE (EC) 325 MG TAB PO (08:33)
[2018-08-10] MEDS ORDERED: TRIAMCINOLONE ACET 0.1% 15 GM OINT TOP (09:00)
[2018-08-10] MEDS: DIGOXIN 0.125 MG TAB PO (12:02)
[2018-08-10] MEDS: SPIRONOLACTONE 25 MG TAB PO (12:03)
[2018-08-10] MEDS: INSULIN GLARGINE [LANTus] (100 UNITS/ML) SYG SC (20:12)
[2018-08-10] MEDS: ATORVASTATIN 10 MG TAB PO (20:18)
[2018-08-10] MEDS ORDERED: NON-FORMULARY/PATIENT OWN MED (Simvastatin* (Zocor*) 20 MG) PO (21:00)
[2018-08-11] MEDS: INSULIN ASPART [NOVOLOG] 3 ML PEN SC ×6 (01:00→20:14)
[2018-08-11] MEDS: ACCU-CHEK XX (02:00)
[2018-08-11 05:47] LABS: ADD MAN DIFF? NO
[2018-08-11 05:50] LABS: BASOPHILS % 0.6 % (0.0-2.0); EOSINOPHILS # 0.2 10^3/ul (0.0-0.5); EOSINOPHILS % 3.2 % (0.0-7.0); HEMATOCRIT 30.6 % (37.0-47.0); HEMOGLOBIN 9.6 g/dl (12.0-16.0); LYMPHOCYTES # 0.8 10^3/ul (0.8-2.9); LYMPHOCYTES % 17.6 % (15.0-51.0); MEAN CORPUSCULAR HEMOGLOBIN 27.8 pg (29.0-33.0); MEAN CORPUSCULAR HGB CONC 31.4 g/dl (32.0-37.0); MEAN CORPUSCULAR VOLUME 88.7 fl (82.0-101.0); MEAN PLATELET VOLUME 9.8 fl (7.4-10.4); MONOCYTE # 0.6 10^3/ul (0.3-0.9); MONOCYTES % 11.8 % (0.0-11.0); NEUTROPHIL # 3.2 10^3/ul (1.6-7.5); NEUTROPHILS % 66.6 % (39.0-77.0); PLATELET COUNT 193 10^3/UL (140-415); RED BLOOD COUNT 3.45 10^6/ul (4.20-5.40); RED CELL DISTRIBUTION WIDTH 17.8 % (11.5-14.5)
[2018-08-11 05:50] LABS: WHITE BLOOD COUNT 4.8 10^3/ul (4.8-10.8)
[2018-08-11 06:25] LABS: ALBUMIN 3.8 g/dl (3.3-4.9); ANION GAP 8 (5-13); BLOOD UREA NITROGEN 45 mg/dl (7-20); CALCIUM 9.2 mg/dl (8.4-10.2); CARBON DIOXIDE 25 mmol/L (21-31); CHLORIDE 107 mmol/L (97-110); CREATININE 1.16 mg/dl (0.44-1.00); GLUCOSE 108 mg/dl (70-220); MAGNESIUM 2.1 mg/dl (1.7-2.5); PHOSPHORUS 4.8 mg/dl (2.5-4.9); POTASSIUM 5.1 mmol/L (3.5-5.1); SODIUM 140 mmol/L (135-144)
[2018-08-11] MEDS: BUMETANIDE 1 MG TAB PO ×2 (06:26→17:43)
[2018-08-11] MEDS: FERROUS SULFATE (EC) 325 MG TAB PO (08:43)
[2018-08-11] MEDS: SPIRONOLACTONE 25 MG TAB PO (08:43)
[2018-08-11] MEDS: LORATADINE 10 MG TAB PO (08:43)
[2018-08-11] MEDS: SILDENAFIL 20 MG TAB PO ×3 (08:43→21:36)
[2018-08-11] MEDS ORDERED: PHYTONADIONE 10 MG/ML INJ SC (13:00)
[2018-08-11] MEDS: DIGOXIN 0.125 MG TAB PO (14:52)
[2018-08-11] MEDS: ALBUMIN HUMAN 25% 50 ML IV (16:58)
[2018-08-11] MEDS: WARFARIN 3 MG TAB PO (17:39)
[2018-08-11] MEDS: INSULIN GLARGINE [LANTus] (100 UNITS/ML) SYG SC (20:15)
[2018-08-11] MEDS: ATORVASTATIN 10 MG TAB PO (20:16)
[2018-08-11] MEDS: ACETAMINOPHEN 325 MG TAB PO (20:20)
[2018-08-12] MEDS: ACCU-CHEK XX (02:00)
[2018-08-12 05:56] LABS: ADD MAN DIFF? NO
[2018-08-12 05:59] LABS: BASOPHILS % 0.7 % (0.0-2.0); EOSINOPHILS # 0.2 10^3/ul (0.0-0.5); EOSINOPHILS % 3.3 % (0.0-7.0); HEMATOCRIT 32.7 % (37.0-47.0); HEMOGLOBIN 10.2 g/dl (12.0-16.0); LYMPHOCYTES # 1.1 10^3/ul (0.8-2.9); LYMPHOCYTES % 23.7 % (15.0-51.0); MEAN CORPUSCULAR HEMOGLOBIN 27.4 pg (29.0-33.0); MEAN CORPUSCULAR HGB CONC 31.2 g/dl (32.0-37.0); MEAN CORPUSCULAR VOLUME 87.9 fl (82.0-101.0); MONOCYTE # 0.5 10^3/ul (0.3-0.9); MONOCYTES % 11.7 % (0.0-11.0); NEUTROPHIL # 2.8 10^3/ul (1.6-7.5); NEUTROPHILS % 60.4 % (39.0-77.0); PLATELET COUNT 192 10^3/UL (140-415); RED BLOOD COUNT 3.72 10^6/ul (4.20-5.40); RED CELL DISTRIBUTION WIDTH 17.3 % (11.5-14.5)
[2018-08-12 05:59] LABS: WHITE BLOOD COUNT 4.6 10^3/ul (4.8-10.8)
[2018-08-12] MEDS: BUMETANIDE 1 MG TAB PO ×2 (06:04→17:41)
[2018-08-12 06:22] LABS: INR 2.26
[2018-08-12 06:40] LABS: ALBUMIN 3.6 g/dl (3.3-4.9); ANION GAP 8 (5-13); BLOOD UREA NITROGEN 46 mg/dl (7-20); CARBON DIOXIDE 27 mmol/L (21-31); CHLORIDE 104 mmol/L (97-110); CREATININE 1.13 mg/dl (0.44-1.00); GLUCOSE 133 mg/dl (70-220); MAGNESIUM 1.7 mg/dl (1.7-2.5); POTASSIUM 4.7 mmol/L (3.5-5.1); SODIUM 139 mmol/L (135-144)
[2018-08-12] MEDS: INSULIN ASPART [NOVOLOG] 3 ML PEN SC ×4 (08:00→21:48)
[2018-08-12] MEDS: SPIRONOLACTONE 25 MG TAB PO ×2 (08:28→21:46)
[2018-08-12] MEDS: FERROUS SULFATE (EC) 325 MG TAB PO (08:28)
[2018-08-12] MEDS: LORATADINE 10 MG TAB PO (08:28)
[2018-08-12] MEDS: SILDENAFIL 20 MG TAB PO ×3 (08:30→21:45)
[2018-08-12] MEDS: DIGOXIN 0.125 MG TAB PO (14:23)
[2018-08-12] MEDS: ENOXAPARIN 100 MG/ML SYG SC (14:59)
[2018-08-12] MEDS: WARFARIN 3 MG TAB PO (17:41)
[2018-08-12] MEDS ORDERED: ENOXAPARIN 100 MG/ML SYG SC (21:00)
[2018-08-12] MEDS: ATORVASTATIN 10 MG TAB PO (21:44)
[2018-08-12] MEDS: INSULIN GLARGINE [LANTus] (100 UNITS/ML) SYG SC (21:47)
[2018-08-13] MEDS: ACCU-CHEK XX (02:00)
[2018-08-13] MEDS: BUMETANIDE 1 MG TAB PO ×2 (05:55→17:58)
[2018-08-13 06:01] LABS: ADD MAN DIFF? NO
[2018-08-13 06:04] LABS: BASOPHILS % 0.6 % (0.0-2.0); EOSINOPHILS # 0.1 10^3/ul (0.0-0.5); EOSINOPHILS % 2.9 % (0.0-7.0); HEMATOCRIT 32.3 % (37.0-47.0); HEMOGLOBIN 10.3 g/dl (12.0-16.0); LYMPHOCYTES # 1.3 10^3/ul (0.8-2.9); LYMPHOCYTES % 26.4 % (15.0-51.0); MEAN CORPUSCULAR HEMOGLOBIN 27.8 pg (29.0-33.0); MEAN CORPUSCULAR HGB CONC 31.9 g/dl (32.0-37.0); MEAN CORPUSCULAR VOLUME 87.3 fl (82.0-101.0); MEAN PLATELET VOLUME 10.6 fl (7.4-10.4); MONOCYTE # 0.6 10^3/ul (0.3-0.9); MONOCYTES % 12.5 % (0.0-11.0); NEUTROPHIL # 2.8 10^3/ul (1.6-7.5); NEUTROPHILS % 57.2 % (39.0-77.0); PLATELET COUNT 204 10^3/UL (140-415); RED CELL DISTRIBUTION WIDTH 17.1 % (11.5-14.5)
[2018-08-13 06:04] LABS: WHITE BLOOD COUNT 4.8 10^3/ul (4.8-10.8)
[2018-08-13 06:27] LABS: INR 2.23; PROTIME 24.8 Sec (11.9-14.9); PT RATIO 1.9
[2018-08-13 06:56] LABS: ALBUMIN 3.8 g/dl (3.3-4.9); ANION GAP 10 (5-13); BLOOD UREA NITROGEN 43 mg/dl (7-20); CALCIUM 9.1 mg/dl (8.4-10.2); CARBON DIOXIDE 29 mmol/L (21-31); CHLORIDE 100 mmol/L (97-110); CREATININE 1.17 mg/dl (0.44-1.00); GLUCOSE 129 mg/dl (70-220); MAGNESIUM 1.4 mg/dl (1.7-2.5); PHOSPHORUS 4.5 mg/dl (2.5-4.9); POTASSIUM 4.1 mmol/L (3.5-5.1); SODIUM 139 mmol/L (135-144)
[2018-08-13] MEDS: INSULIN ASPART [NOVOLOG] 3 ML PEN SC ×4 (08:00→20:50)
[2018-08-13] MEDS: FERROUS SULFATE (EC) 325 MG TAB PO (08:39)
[2018-08-13] MEDS: SPIRONOLACTONE 25 MG TAB PO ×2 (08:39→20:53)
[2018-08-13] MEDS: SILDENAFIL 20 MG TAB PO ×3 (08:39→20:54)
[2018-08-13] MEDS: LORATADINE 10 MG TAB PO (08:39)
[2018-08-13] MEDS: PANTOPRAZOLE (EC) 40 MG TAB PO (11:56)
[2018-08-13] MEDS: MAGNESIUM SULFATE 2 GM/50 ML 50 ML IVPB (11:56)
[2018-08-13] MEDS: DIGOXIN 0.125 MG TAB PO (14:27)
[2018-08-13] MEDS: WARFARIN 3 MG TAB PO (17:58)
[2018-08-13] MEDS: INSULIN GLARGINE [LANTus] (100 UNITS/ML) SYG SC (20:52)
[2018-08-13] MEDS: ATORVASTATIN 10 MG TAB PO (20:53)
[2018-08-14] MEDS: ACCU-CHEK XX (01:05)
[2018-08-14] MEDS: BUMETANIDE 1 MG TAB PO ×2 (06:03→17:37)
[2018-08-14] MEDS: PANTOPRAZOLE (EC) 40 MG TAB PO (06:03)
[2018-08-14 06:21] LABS: ADD MAN DIFF? NO
[2018-08-14 06:25] LABS: BASOPHILS % 0.8 % (0.0-2.0); EOSINOPHILS # 0.2 10^3/ul (0.0-0.5); EOSINOPHILS % 3.3 % (0.0-7.0); HEMATOCRIT 33.7 % (37.0-47.0); HEMOGLOBIN 10.8 g/dl (12.0-16.0); LYMPHOCYTES # 1.1 10^3/ul (0.8-2.9); LYMPHOCYTES % 21.2 % (15.0-51.0); MEAN CORPUSCULAR HEMOGLOBIN 27.6 pg (29.0-33.0); MEAN CORPUSCULAR VOLUME 86.2 fl (82.0-101.0); MEAN PLATELET VOLUME 10.1 fl (7.4-10.4); MONOCYTE # 0.5 10^3/ul (0.3-0.9); MONOCYTES % 10.5 % (0.0-11.0); NEUTROPHIL # 3.3 10^3/ul (1.6-7.5); PLATELET COUNT 223 10^3/UL (140-415); RED BLOOD COUNT 3.91 10^6/ul (4.20-5.40)
[2018-08-14 06:25] LABS: WHITE BLOOD COUNT 5.1 10^3/ul (4.8-10.8)
[2018-08-14 06:41] LABS: INR 2.28; PROTIME 25.2 Sec (11.9-14.9)
[2018-08-14 06:52] LABS: ANION GAP 10 (5-13); BLOOD UREA NITROGEN 45 mg/dl (7-20); CALCIUM 9.5 mg/dl (8.4-10.2); CARBON DIOXIDE 31 mmol/L (21-31); CHLORIDE 97 mmol/L (97-110); CREATININE 1.24 mg/dl (0.44-1.00); Estimated GFR 45 mL/min (>60); GLUCOSE 139 mg/dl (70-220); MAGNESIUM 1.6 mg/dl (1.7-2.5); PHOSPHORUS 4.5 mg/dl (2.5-4.9); POTASSIUM 4.4 mmol/L (3.5-5.1); SODIUM 138 mmol/L (135-144)
[2018-08-14] MEDS: SPIRONOLACTONE 25 MG TAB PO ×2 (08:42→21:27)
[2018-08-14] MEDS: FERROUS SULFATE (EC) 325 MG TAB PO (08:42)
[2018-08-14] MEDS: SILDENAFIL 20 MG TAB PO ×3 (08:42→21:27)
[2018-08-14] MEDS: LORATADINE 10 MG TAB PO (08:42)
[2018-08-14] MEDS: LISINOPRIL 5 MG TAB PO (08:43)
[2018-08-14] MEDS: INSULIN ASPART [NOVOLOG] 3 ML PEN SC ×4 (08:44→21:31)
[2018-08-14] MEDS: MAGNESIUM SULFATE 2 GM/50 ML 50 ML IVPB (11:16)
[2018-08-14] MEDS: DIGOXIN 0.125 MG TAB PO (12:24)
[2018-08-14] MEDS: WARFARIN 3 MG TAB PO (17:36)
[2018-08-14] MEDS: ACETAMINOPHEN 325 MG TAB PO (17:37)
[2018-08-14 20:20] LABS: ADD UMIC YES; UR ASCORBIC ACID NEGATIVE (NEGATIVE); UR BILIRUBIN (Dip) NEGATIVE (NEGATIVE); UR BLOOD (Dip) 1+ mg/dL (NEGATIVE); UR CLARITY CLEAR (CLEAR); UR COLOR YELLOW (YELLOW); UR GLUCOSE (Dip) NEGATIVE (NEGATIVE); UR KETONES (Dip) NEGATIVE (NEGATIVE); UR LEUKOCYTE ESTERASE (Dip) TRACE Leu/ul (NEGATIVE); UR NITRITE (Dip) NEGATIVE (NEGATIVE); UR RBC 2 /HPF (0-5); UR SPECIFIC GRAVITY (Dip) 1.012 (1.003-1.030); UR SQUAMOUS EPITHELIAL CELL FEW /HPF (FEW); UR TOTAL PROTEIN (Dip) NEGATIVE (NEGATIVE); UR UROBILINOGEN (Dip) NEGATIVE (NEGATIVE); UR WBC 3 /HPF (0-5)
[2018-08-14] MEDS: ATORVASTATIN 10 MG TAB PO (21:27)
[2018-08-14] MEDS: INSULIN GLARGINE [LANTus] (100 UNITS/ML) SYG SC (21:32)
[2018-08-15] MEDS: ACCU-CHEK XX (02:51)
[2018-08-15 03:16] LABS: SODIUM,URINE RANDOM 100 mmol/L (30-90)
[2018-08-15 03:16] LABS: CREATININE,URINE RANDOM 35.36 mg/dl (20-320)
[2018-08-15] MEDS: PANTOPRAZOLE (EC) 40 MG TAB PO ×2 (05:35→17:20)
[2018-08-15] MEDS: BUMETANIDE 1 MG TAB PO ×2 (05:35→17:20)
[2018-08-15 08:10] LABS: ADD MAN DIFF? NO
[2018-08-15 08:17] LABS: BASOPHIL # 0.1 10^3/ul (0.0-0.1); EOSINOPHILS # 0.2 10^3/ul (0.0-0.5); EOSINOPHILS % 3.2 % (0.0-7.0); HEMATOCRIT 33.6 % (37.0-47.0); HEMOGLOBIN 10.7 g/dl (12.0-16.0); LYMPHOCYTES % 19.3 % (15.0-51.0); MEAN CORPUSCULAR HEMOGLOBIN 27.6 pg (29.0-33.0); MEAN CORPUSCULAR HGB CONC 31.8 g/dl (32.0-37.0); MEAN CORPUSCULAR VOLUME 86.6 fl (82.0-101.0); MEAN PLATELET VOLUME 9.9 fl (7.4-10.4); MONOCYTE # 0.5 10^3/ul (0.3-0.9); MONOCYTES % 10.4 % (0.0-11.0); NEUTROPHIL # 3.3 10^3/ul (1.6-7.5); NEUTROPHILS % 65.7 % (39.0-77.0); PLATELET COUNT 212 10^3/UL (140-415); RED BLOOD COUNT 3.88 10^6/ul (4.20-5.40)
[2018-08-15 08:35] LABS: ANION GAP 11 (5-13); BLOOD UREA NITROGEN 50 mg/dl (7-20); CALCIUM 9.3 mg/dl (8.4-10.2); CARBON DIOXIDE 31 mmol/L (21-31); CHLORIDE 95 mmol/L (97-110); CREATININE 1.15 mg/dl (0.44-1.00); Estimated GFR 49 mL/min (>60); GLUCOSE 165 mg/dl (70-220); MAGNESIUM 1.9 mg/dl (1.7-2.5); PHOSPHORUS 4.9 mg/dl (2.5-4.9); POTASSIUM 4.1 mmol/L (3.5-5.1); SODIUM 137 mmol/L (135-144)
[2018-08-15 08:36] LABS: PROTIME 27.9 Sec (11.9-14.9); PT RATIO 2.2
[2018-08-15] MEDS: INSULIN ASPART [NOVOLOG] 3 ML PEN SC ×4 (08:50→20:58)
[2018-08-15] MEDS: LORATADINE 10 MG TAB PO (08:51)
[2018-08-15] MEDS: LISINOPRIL 5 MG TAB PO (08:53)
[2018-08-15] MEDS: FERROUS SULFATE (EC) 325 MG TAB PO (08:53)
[2018-08-15] MEDS: SPIRONOLACTONE 25 MG TAB PO ×2 (08:54→21:03)
[2018-08-15] MEDS: SILDENAFIL 20 MG TAB PO ×3 (08:54→21:05)
[2018-08-15] MEDS ORDERED: IOHEXOL 14.3 MG(I)/ML (ADULT) BTL PO (10:30)
[2018-08-15] MEDS: ACETAMINOPHEN 325 MG TAB PO (11:30)
[2018-08-15] MEDS: DIGOXIN 0.125 MG TAB PO (12:29)
[2018-08-15] MEDS ORDERED: traMADol 50 MG TAB PO (13:00)
[2018-08-15] MEDS ORDERED: morphine 2 MG INJ IV (13:00)
[2018-08-15] MEDS ORDERED: HYDROCODONE/APAP (5/325) TAB PO (13:30)
[2018-08-15] MEDS: SUCRALFATE (100 MG/ML) 10ML CUP PO ×2 (17:20→21:01)
[2018-08-15] MEDS: WARFARIN 3 MG TAB PO (17:22)
[2018-08-15] MEDS: INSULIN GLARGINE [LANTus] (100 UNITS/ML) SYG SC (21:00)
[2018-08-15] MEDS: ATORVASTATIN 10 MG TAB PO (21:01)
[2018-08-16] MEDS: ACCU-CHEK XX (02:00)
[2018-08-16] MEDS: PANTOPRAZOLE (EC) 40 MG TAB PO ×2 (05:27→17:39)
[2018-08-16] MEDS: BUMETANIDE 1 MG TAB PO ×2 (05:27→17:40)
[2018-08-16 06:31] LABS: ANION GAP 9 (5-13); BLOOD UREA NITROGEN 53 mg/dl (7-20); CALCIUM 9.4 mg/dl (8.4-10.2); CARBON DIOXIDE 34 mmol/L (21-31); CHLORIDE 95 mmol/L (97-110); CREATININE 1.28 mg/dl (0.44-1.00); Estimated GFR 44 mL/min (>60); GLUCOSE 153 mg/dl (70-220); INR 2.95; MAGNESIUM 1.9 mg/dl (1.7-2.5); PHOSPHORUS 4.3 mg/dl (2.5-4.9); POTASSIUM 4.4 mmol/L (3.5-5.1); PROTIME 30.8 Sec (11.9-14.9); PT RATIO 2.4; SODIUM 138 mmol/L (135-144)
[2018-08-16] MEDS: INSULIN ASPART [NOVOLOG] 3 ML PEN SC ×4 (08:03→20:54)
[2018-08-16] MEDS: SUCRALFATE (100 MG/ML) 10ML CUP PO ×4 (08:45→20:50)
[2018-08-16] MEDS: SPIRONOLACTONE 25 MG TAB PO ×2 (08:46→20:42)
[2018-08-16] MEDS: LORATADINE 10 MG TAB PO (08:46)
[2018-08-16] MEDS: FERROUS SULFATE (EC) 325 MG TAB PO (08:46)
[2018-08-16] MEDS: LISINOPRIL 5 MG TAB PO (09:00)
[2018-08-16] MEDS: SILDENAFIL 20 MG TAB PO ×3 (09:00→20:43)
[2018-08-16] MEDS: DIGOXIN 0.125 MG TAB PO (13:11)
[2018-08-16 13:27] LABS: MITOCHONDRIAL TB NEGATIVE (NEGATIVE); SMOOTH MUSCLE AB SCREEN NEGATIVE (NEGATIVE)
[2018-08-16 15:52] LABS: CREATININE, RANDOM URINE 39 mg/dL (20-275); MICROALBUMIN 2.5 mg/dL; MICROALBUMIN/CREATININE RATIO 64 (<30)
[2018-08-16] MEDS: WARFARIN 2 MG TAB PO (17:39)
[2018-08-16 18:56] LABS: ANA SCREEN POSITIVE (NEGATIVE)
[2018-08-16] MEDS: ATORVASTATIN 10 MG TAB PO (20:42)
[2018-08-16] MEDS: INSULIN GLARGINE [LANTus] (100 UNITS/ML) SYG SC (20:53)
[2018-08-16 21:17] LABS: ANA PATTERN SPECKLED; ANA TITER 1:40 titer
[2018-08-17] MEDS: ACCU-CHEK XX (02:36)
[2018-08-17 06:10] LABS: ADD MAN DIFF? NO
[2018-08-17 06:23] LABS: WHITE BLOOD COUNT 4.9 10^3/ul (4.8-10.8)
[2018-08-17 06:23] LABS: BASOPHILS % 0.8 % (0.0-2.0); EOSINOPHILS # 0.2 10^3/ul (0.0-0.5); EOSINOPHILS % 3.1 % (0.0-7.0); HEMATOCRIT 34.3 % (37.0-47.0); LYMPHOCYTES # 1.2 10^3/ul (0.8-2.9); LYMPHOCYTES % 24.5 % (15.0-51.0); MEAN CORPUSCULAR HEMOGLOBIN 27.9 pg (29.0-33.0); MEAN CORPUSCULAR HGB CONC 32.1 g/dl (32.0-37.0); MEAN CORPUSCULAR VOLUME 87.1 fl (82.0-101.0); MEAN PLATELET VOLUME 10.2 fl (7.4-10.4); MONOCYTE # 0.6 10^3/ul (0.3-0.9); MONOCYTES % 11.8 % (0.0-11.0); NEUTROPHIL # 2.9 10^3/ul (1.6-7.5); NEUTROPHILS % 59.6 % (39.0-77.0); PLATELET COUNT 217 10^3/UL (140-415); RED BLOOD COUNT 3.94 10^6/ul (4.20-5.40); RED CELL DISTRIBUTION WIDTH 16.4 % (11.5-14.5)
[2018-08-17] MEDS: BUMETANIDE 1 MG TAB PO ×2 (06:33→18:10)
[2018-08-17] MEDS: PANTOPRAZOLE (EC) 40 MG TAB PO ×2 (06:33→18:10)
[2018-08-17 06:39] LABS: PROTIME 31.2 Sec (11.9-14.9); PT RATIO 2.4
[2018-08-17 07:08] LABS: ANION GAP 13 (5-13); BLOOD UREA NITROGEN 65 mg/dl (7-20); CALCIUM 9.6 mg/dl (8.4-10.2); CARBON DIOXIDE 33 mmol/L (21-31); CHLORIDE 94 mmol/L (97-110); Estimated GFR 47 mL/min (>60); GLUCOSE 137 mg/dl (70-220); MAGNESIUM 2.1 mg/dl (1.7-2.5); PHOSPHORUS 4.5 mg/dl (2.5-4.9); SODIUM 140 mmol/L (135-144)
[2018-08-17] MEDS: INSULIN ASPART [NOVOLOG] 3 ML PEN SC ×4 (08:00→20:53)
[2018-08-17] MEDS: SPIRONOLACTONE 25 MG TAB PO ×2 (08:38→20:49)
[2018-08-17] MEDS: LORATADINE 10 MG TAB PO (08:38)
[2018-08-17] MEDS: FERROUS SULFATE (EC) 325 MG TAB PO (08:38)
[2018-08-17] MEDS: SUCRALFATE (100 MG/ML) 10ML CUP PO ×4 (08:38→20:49)
[2018-08-17] MEDS: SILDENAFIL 20 MG TAB PO ×3 (08:39→20:49)
[2018-08-17] MEDS: LISINOPRIL 5 MG TAB PO (08:40)
[2018-08-17] MEDS: DIGOXIN 0.125 MG TAB PO (12:29)
[2018-08-17] MEDS: ATORVASTATIN 10 MG TAB PO (20:49)
[2018-08-17] MEDS: INSULIN GLARGINE [LANTus] (100 UNITS/ML) SYG SC (20:52)
[2018-08-17] MEDS: ACETAMINOPHEN 325 MG TAB PO (21:10)
[2018-08-18] MEDS: ACCU-CHEK XX (01:43)
[2018-08-18] MEDS: ZOLPIDEM 5 MG TAB PO (02:21)
[2018-08-18] MEDS: PANTOPRAZOLE (EC) 40 MG TAB PO ×2 (06:00→17:38)
[2018-08-18] MEDS: BUMETANIDE 1 MG TAB PO (06:00)
[2018-08-18 06:49] LABS: ANION GAP 14 (5-13); BLOOD UREA NITROGEN 76 mg/dl (7-20); CALCIUM 9.8 mg/dl (8.4-10.2); CARBON DIOXIDE 32 mmol/L (21-31); CHLORIDE 92 mmol/L (97-110); CREATININE 1.59 mg/dl (0.44-1.00); Estimated GFR 34 mL/min (>60); GLUCOSE 121 mg/dl (70-220); MAGNESIUM 2.1 mg/dl (1.7-2.5); PHOSPHORUS 5.1 mg/dl (2.5-4.9); SODIUM 138 mmol/L (135-144)
[2018-08-18 06:53] LABS: PT RATIO 2.4
[2018-08-18] MEDS: INSULIN ASPART [NOVOLOG] 3 ML PEN SC ×4 (08:00→21:53)
[2018-08-18 08:55] LABS: PROTIME 30.4 Sec (11.9-14.9)
[2018-08-18] MEDS: SILDENAFIL 20 MG TAB PO ×3 (09:00→21:00)
[2018-08-18] MEDS: SUCRALFATE (100 MG/ML) 10ML CUP PO ×4 (09:38→21:49)
[2018-08-18] MEDS: FERROUS SULFATE (EC) 325 MG TAB PO (09:39)
[2018-08-18] MEDS: LORATADINE 10 MG TAB PO (09:39)
[2018-08-18] MEDS: DIGOXIN 0.125 MG TAB PO (14:19)
[2018-08-18] MEDS ORDERED: WARFARIN 2 MG TAB PO (17:00)
[2018-08-18] MEDS: WARFARIN 2 MG TAB PO (17:38)
[2018-08-18] MEDS: INSULIN GLARGINE [LANTus] (100 UNITS/ML) SYG SC (21:52)
[2018-08-18] MEDS: ATORVASTATIN 10 MG TAB PO (21:57)
[2018-08-19] MEDS: ACCU-CHEK XX (02:00)
[2018-08-19] MEDS: ACETAMINOPHEN 325 MG TAB PO ×2 (02:06→23:14)
[2018-08-19] MEDS: PANTOPRAZOLE (EC) 40 MG TAB PO ×2 (05:57→17:34)
[2018-08-19 08:25] LABS: ADD MAN DIFF? NO
[2018-08-19 08:31] LABS: WHITE BLOOD COUNT 4.2 10^3/ul (4.8-10.8)
[2018-08-19 08:31] LABS: EOSINOPHILS # 0.2 10^3/ul (0.0-0.5); EOSINOPHILS % 3.8 % (0.0-7.0); HEMATOCRIT 34.6 % (37.0-47.0); HEMOGLOBIN 11.1 g/dl (12.0-16.0); LYMPHOCYTES # 1.2 10^3/ul (0.8-2.9); LYMPHOCYTES % 28.2 % (15.0-51.0); MEAN CORPUSCULAR HEMOGLOBIN 27.9 pg (29.0-33.0); MEAN CORPUSCULAR HGB CONC 32.1 g/dl (32.0-37.0); MEAN CORPUSCULAR VOLUME 86.9 fl (82.0-101.0); MEAN PLATELET VOLUME 10.6 fl (7.4-10.4); MONOCYTE # 0.6 10^3/ul (0.3-0.9); MONOCYTES % 13.4 % (0.0-11.0); NEUTROPHIL # 2.2 10^3/ul (1.6-7.5); NEUTROPHILS % 53.4 % (39.0-77.0); PLATELET COUNT 213 10^3/UL (140-415); RED BLOOD COUNT 3.98 10^6/ul (4.20-5.40); RED CELL DISTRIBUTION WIDTH 16.1 % (11.5-14.5)
[2018-08-19 08:53] LABS: ANION GAP 12 (5-13); BLOOD UREA NITROGEN 78 mg/dl (7-20); CALCIUM 9.9 mg/dl (8.4-10.2); CARBON DIOXIDE 32 mmol/L (21-31); CHLORIDE 94 mmol/L (97-110); CREATININE 1.46 mg/dl (0.44-1.00); Estimated GFR 37 mL/min (>60); GLUCOSE 164 mg/dl (70-220); MAGNESIUM 2.3 mg/dl (1.7-2.5); PHOSPHORUS 4.5 mg/dl (2.5-4.9); POTASSIUM 3.9 mmol/L (3.5-5.1); SODIUM 138 mmol/L (135-144)
[2018-08-19 08:54] LABS: INR 2.52; PROTIME 27.2 Sec (11.9-14.9); PT RATIO 2.1
[2018-08-19] MEDS: SILDENAFIL 20 MG TAB PO ×3 (09:00→20:55)
[2018-08-19] MEDS: INSULIN ASPART [NOVOLOG] 3 ML PEN SC ×4 (09:01→20:54)
[2018-08-19] MEDS: SUCRALFATE (100 MG/ML) 10ML CUP PO ×4 (09:02→22:00)
[2018-08-19] MEDS: FERROUS SULFATE (EC) 325 MG TAB PO (09:04)
[2018-08-19] MEDS: LORATADINE 10 MG TAB PO (09:04)
[2018-08-19] MEDS: LINAGLIPTIN 5 MG TABLET PO (12:35)
[2018-08-19] MEDS: DIGOXIN 0.125 MG TAB PO (12:35)
[2018-08-19] MEDS: INSULIN GLARGINE [LANTus] (100 UNITS/ML) SYG SC ×2 (14:56→20:53)
[2018-08-19] MEDS: WARFARIN 2 MG TAB PO (17:34)
[2018-08-19] MEDS: ATORVASTATIN 10 MG TAB PO (20:50)
[2018-08-20] MEDS: ACCU-CHEK XX (02:00)
[2018-08-20 06:22] LABS: INR 2.72; PROTIME 28.9 Sec (11.9-14.9); PT RATIO 2.3
[2018-08-20] MEDS: PANTOPRAZOLE (EC) 40 MG TAB PO ×2 (06:36→18:58)
[2018-08-20 06:48] LABS: ANION GAP 10 (5-13); BLOOD UREA NITROGEN 71 mg/dl (7-20); CALCIUM 9.8 mg/dl (8.4-10.2); CARBON DIOXIDE 33 mmol/L (21-31); CHLORIDE 97 mmol/L (97-110); CREATININE 1.23 mg/dl (0.44-1.00); Estimated GFR 46 mL/min (>60); GLUCOSE 125 mg/dl (70-220); MAGNESIUM 2.5 mg/dl (1.7-2.5); PHOSPHORUS 3.9 mg/dl (2.5-4.9); POTASSIUM 3.8 mmol/L (3.5-5.1); SODIUM 140 mmol/L (135-144)
[2018-08-20] MEDS: INSULIN ASPART [NOVOLOG] 3 ML PEN SC ×4 (08:00→21:15)
[2018-08-20] MEDS: SUCRALFATE (100 MG/ML) 10ML CUP PO ×4 (10:34→21:03)
[2018-08-20] MEDS: FERROUS SULFATE (EC) 325 MG TAB PO (10:35)
[2018-08-20] MEDS: LINAGLIPTIN 5 MG TABLET PO (10:35)
[2018-08-20] MEDS: LORATADINE 10 MG TAB PO (10:35)
[2018-08-20] MEDS: SILDENAFIL 20 MG TAB PO ×3 (10:35→21:02)
[2018-08-20] MEDS: DIGOXIN 0.125 MG TAB PO (13:32)
[2018-08-20] MEDS: WARFARIN 2 MG TAB PO (18:58)
[2018-08-20] MEDS: ATORVASTATIN 10 MG TAB PO (21:02)
[2018-08-20] MEDS: INSULIN GLARGINE [LANTus] (100 UNITS/ML) SYG SC (21:07)
[2018-08-21] MEDS: ACCU-CHEK XX (02:00)
[2018-08-21] MEDS: PANTOPRAZOLE (EC) 40 MG TAB PO (05:48)
[2018-08-21 06:18] LABS: INR 2.59; PROTIME 27.8 Sec (11.9-14.9); PT RATIO 2.2
[2018-08-21 06:31] LABS: ANION GAP 14 (5-13); BLOOD UREA NITROGEN 56 mg/dl (7-20); CALCIUM 9.5 mg/dl (8.4-10.2); CARBON DIOXIDE 30 mmol/L (21-31); CHLORIDE 99 mmol/L (97-110); CREATININE 1.06 mg/dl (0.44-1.00); Estimated GFR 54 mL/min (>60); GLUCOSE 147 mg/dl (70-220); MAGNESIUM 2.4 mg/dl (1.7-2.5); PHOSPHORUS 3.7 mg/dl (2.5-4.9); POTASSIUM 4.1 mmol/L (3.5-5.1); SODIUM 143 mmol/L (135-144)
[2018-08-21 06:42] LABS: DIGOXIN 0.9 ng/ml (1.0-2.0)
[2018-08-21] MEDS: INSULIN ASPART [NOVOLOG] 3 ML PEN SC ×2 (08:14→12:05)
[2018-08-21] MEDS: SILDENAFIL 20 MG TAB PO ×2 (08:15→12:12)
[2018-08-21] MEDS: SUCRALFATE (100 MG/ML) 10ML CUP PO ×2 (08:15→12:09)
[2018-08-21] MEDS: LINAGLIPTIN 5 MG TABLET PO (08:18)
[2018-08-21] MEDS: FERROUS SULFATE (EC) 325 MG TAB PO (08:18)
[2018-08-21] MEDS: LORATADINE 10 MG TAB PO (08:18)
[2018-08-21] MEDS: SPIRONOLACTONE 25 MG TAB PO (08:19)
[2018-08-21] MEDS: BUMETANIDE 1 MG TAB PO (08:20)
== END 2018-08-21 15:17 | disposition home or self-care (01) | DRG 432 ==
LOC: E/R 16:58 → PP2 22:46
PROC: 0W9G3ZZ Drainage of Peritoneal Cavity, Percutaneous Approach (ICD-10-PCS; principal; 2018-08-11)
DX: K74.60 Unspecified cirrhosis of liver (principal); I50.33 Acute on chronic diastolic (congestive) heart failure; R18.8 Other ascites; N17.9 Acute kidney failure, unspecified; E11.65 Type 2 diabetes mellitus with hyperglycemia; I48.91 Unspecified atrial fibrillation; Z79.01 Long term (current) use of anticoagulants; E03.9 Hypothyroidism, unspecified; Z95.2 Presence of prosthetic heart valve; I27.20 Pulmonary hypertension, unspecified; E83.42 Hypomagnesemia; I11.0 Hypertensive heart disease with heart failure; R10.13 Epigastric pain
CPT/HCPCS: 36415; 71045; 74176; 80048; 80053; 80069; 80162; 81001; 81003; 82043; 82962; 83036; 83690; 83735; 84100; 84155; 84300; 84443; 85025; 85610; 85730; 86038; 86255; 93005; 99285-25

== ENCOUNTER 2018-09-23 15:25 | Observation (INO) | payer OTHER ==
[2018-09-23 15:54] LABS: ADD MAN DIFF? NO
[2018-09-23 15:58] LABS: WHITE BLOOD COUNT 5.8 10^3/ul (4.8-10.8)
[2018-09-23 15:58] LABS: BASOPHIL # 0.1 10^3/ul (0.0-0.1); BASOPHILS % 0.9 % (0.0-2.0); EOSINOPHILS # 0.2 10^3/ul (0.0-0.5); EOSINOPHILS % 2.9 % (0.0-7.0); HEMATOCRIT 36.8 % (37.0-47.0); HEMOGLOBIN 11.3 g/dl (12.0-16.0); LYMPHOCYTES # 1.1 10^3/ul (0.8-2.9); MEAN CORPUSCULAR HEMOGLOBIN 28.7 pg (29.0-33.0); MEAN CORPUSCULAR HGB CONC 30.7 g/dl (32.0-37.0); MEAN CORPUSCULAR VOLUME 93.4 fl (82.0-101.0); MONOCYTE # 0.5 10^3/ul (0.3-0.9); MONOCYTES % 8.3 % (0.0-11.0); NEUTROPHILS % 68.4 % (39.0-77.0); PLATELET COUNT 277 10^3/UL (140-415); RED BLOOD COUNT 3.94 10^6/ul (4.20-5.40); RED CELL DISTRIBUTION WIDTH 14.8 % (11.5-14.5)
[2018-09-23 16:17] LABS: INR 1.84; PROTIME 21.3 Sec (11.9-14.9); PT RATIO 1.7
[2018-09-23 16:26] LABS: ALANINE AMINOTRANSFERASE 18 IU/L (13-69); ALBUMIN 3.9 g/dl (3.3-4.9); ALBUMIN/GLOBULIN RATIO 1.08; ALKALINE PHOSPHATASE 122 IU/L (42-121); ANION GAP 9 (5-13); ASPARTATE AMINO TRANSFERASE 27 IU/L (15-46); BILIRUBIN,INDIRECT 0.7 mg/dl (0-1.1); BILIRUBIN,TOTAL 0.7 mg/dl (0.2-1.3); BLOOD UREA NITROGEN 20 mg/dl (7-20); CALCIUM 9.4 mg/dl (8.4-10.2); CARBON DIOXIDE 26 mmol/L (21-31); CHLORIDE 105 mmol/L (97-110); CREATININE 1.07 mg/dl (0.44-1.00); Estimated GFR 54 mL/min (>60); GLUCOSE 173 mg/dl (70-220); POTASSIUM 4.5 mmol/L (3.5-5.1); SODIUM 140 mmol/L (135-144); TOTAL PROTEIN 7.5 g/dl (6.1-8.1)
[2018-09-23] MEDS ORDERED: ONDANSETRON 4 MG INJ IV ×2 (18:00→18:30)
[2018-09-23] MEDS ORDERED: ACETAMINOPHEN 325 MG TAB PO (18:00)
[2018-09-23] MEDS: FUROSEMIDE 40 MG INJ IV (18:12)
[2018-09-23] MEDS ORDERED: ZOLPIDEM 5 MG TAB PO (18:30)
[2018-09-23] MEDS ORDERED: morphine 2 MG INJ IV (18:30)
[2018-09-23] MEDS ORDERED: NACL 0.9% 3 ML SYG IV (18:30)
[2018-09-23] MEDS ORDERED: DOCUSATE SODIUM 100 MG CAP PO (18:30)
[2018-09-23] MEDS ORDERED: DEXTROSE 50% 50 ML SYRINGE IV ×2 (19:00)
[2018-09-23] MEDS ORDERED: GLUCAGON 1 MG INJ IM (19:00)
[2018-09-23] MEDS ORDERED: GLUCOSE GEL 15 GRAM TUBE BUCCAL (19:00)
[2018-09-23] MEDS ORDERED: GLUCOSE GEL 15 GRAM TUBE PO ×2 (19:00)
[2018-09-23] MEDS ORDERED: KETOROLAC 30 MG INJ IV (19:30)
[2018-09-23] MEDS: INSULIN ASPART [NOVOLOG] 3 ML PEN SC (21:00)
[2018-09-23] MEDS: SPIRONOLACTONE 25 MG TAB PO (21:49)
[2018-09-23] MEDS: WARFARIN 2 MG TAB PO (21:49)
[2018-09-23] MEDS: SUCRALFATE (100 MG/ML) 10ML CUP PO (21:49)
[2018-09-23] MEDS: BUMETANIDE 1 MG INJ IV (21:52)
[2018-09-23] MEDS: INSULIN GLARGINE [LANTus] (100 UNITS/ML) SYG SC (21:54)
[2018-09-24] MEDS: ACCU-CHEK XX (02:06)
[2018-09-24] MEDS: INSULIN ASPART [NOVOLOG] 3 ML PEN SC ×6 (02:11→21:16)
[2018-09-24] MEDS: BUMETANIDE 1 MG INJ IV ×2 (05:15→18:57)
[2018-09-24] MEDS: PANTOPRAZOLE (EC) 40 MG TAB PO ×2 (05:15→18:57)
[2018-09-24 07:24] LABS: ADD MAN DIFF? NO
[2018-09-24 07:32] LABS: WHITE BLOOD COUNT 5.3 10^3/ul (4.8-10.8)
[2018-09-24 07:32] LABS: BASOPHILS % 0.6 % (0.0-2.0); EOSINOPHILS # 0.2 10^3/ul (0.0-0.5); HEMATOCRIT 34.8 % (37.0-47.0); HEMOGLOBIN 10.5 g/dl (12.0-16.0); LYMPHOCYTES # 0.9 10^3/ul (0.8-2.9); LYMPHOCYTES % 17.4 % (15.0-51.0); MEAN CORPUSCULAR HEMOGLOBIN 28.5 pg (29.0-33.0); MEAN CORPUSCULAR HGB CONC 30.2 g/dl (32.0-37.0); MEAN CORPUSCULAR VOLUME 94.6 fl (82.0-101.0); MEAN PLATELET VOLUME 10.1 fl (7.4-10.4); MONOCYTE # 0.6 10^3/ul (0.3-0.9); MONOCYTES % 10.7 % (0.0-11.0); NEUTROPHIL # 3.6 10^3/ul (1.6-7.5); NEUTROPHILS % 67.9 % (39.0-77.0); PLATELET COUNT 250 10^3/UL (140-415); RED BLOOD COUNT 3.68 10^6/ul (4.20-5.40)
[2018-09-24 07:50] LABS: ANION GAP 8 (5-13); BLOOD UREA NITROGEN 21 mg/dl (7-20); CALCIUM 9.3 mg/dl (8.4-10.2); CARBON DIOXIDE 29 mmol/L (21-31); CHLORIDE 105 mmol/L (97-110); CREATININE 0.93 mg/dl (0.44-1.00); Estimated GFR > 60 mL/min (>60); GLUCOSE 126 mg/dl (70-220); MAGNESIUM 1.5 mg/dl (1.7-2.5); PHOSPHORUS 5.2 mg/dl (2.5-4.9); SODIUM 142 mmol/L (135-144)
[2018-09-24 08:31] LABS: HEMOGLOBIN A1C 7.9 % (0-5.9)
[2018-09-24] MEDS: SUCRALFATE (100 MG/ML) 10ML CUP PO ×4 (09:05→21:12)
[2018-09-24] MEDS: SPIRONOLACTONE 25 MG TAB PO ×2 (09:05→21:13)
[2018-09-24] MEDS: LIDOCAINE 1% (MPF) 5 ML VIAL (12:13)
[2018-09-24] MEDS: MAGNESIUM SULFATE 4 GM/100 ML 100 ML IVPB (16:19)
[2018-09-24] MEDS: WARFARIN 2 MG TAB PO (18:57)
[2018-09-24] MEDS: INSULIN GLARGINE [LANTus] (100 UNITS/ML) SYG SC (21:16)
== END 2018-09-24 22:07 | disposition home or self-care (01) ==
LOC: E/R 15:25 → PP2 17:52
DX: R18.8 Other ascites (principal); K74.69 Other cirrhosis of liver; E11.9 Type 2 diabetes mellitus without complications; I48.0 Paroxysmal atrial fibrillation; Z79.01 Long term (current) use of anticoagulants; Z95.4 Presence of other heart-valve replacement; Z79.4 Long term (current) use of insulin
CPT/HCPCS: 80048; 80053; 82962; 83036; 83735; 84100; 85025; 85610; 85730; 99285-25; G0378

== ENCOUNTER 2018-10-11 21:47 | Inpatient (IN) | payer OTHER ==
[2018-10-12 00:57] LABS: ADD MAN DIFF? NO
[2018-10-12 00:59] LABS: BASOPHILS % 0.7 % (0.0-2.0); EOSINOPHILS # 0.2 10^3/ul (0.0-0.5); EOSINOPHILS % 3.6 % (0.0-7.0); HEMATOCRIT 36.5 % (37.0-47.0); HEMOGLOBIN 11.4 g/dl (12.0-16.0); LYMPHOCYTES % 18.4 % (15.0-51.0); MEAN CORPUSCULAR HEMOGLOBIN 28.6 pg (29.0-33.0); MEAN CORPUSCULAR HGB CONC 31.2 g/dl (32.0-37.0); MEAN CORPUSCULAR VOLUME 91.5 fl (82.0-101.0); MONOCYTE # 0.6 10^3/ul (0.3-0.9); NEUTROPHIL # 3.7 10^3/ul (1.6-7.5); NEUTROPHILS % 66.8 % (39.0-77.0); PLATELET COUNT 282 10^3/UL (140-415); RED BLOOD COUNT 3.99 10^6/ul (4.20-5.40); RED CELL DISTRIBUTION WIDTH 14.5 % (11.5-14.5)
[2018-10-12 00:59] LABS: WHITE BLOOD COUNT 5.6 10^3/ul (4.8-10.8)
[2018-10-12 01:17] LABS: ANION GAP 12 (5-13); BLOOD UREA NITROGEN 26 mg/dl (7-20); CARBON DIOXIDE 22 mmol/L (21-31); CHLORIDE 106 mmol/L (97-110); CREATININE 1.03 mg/dl (0.44-1.00); Estimated GFR 56 mL/min (>60); GLUCOSE 166 mg/dl (70-220); POTASSIUM 4.7 mmol/L (3.5-5.1); SODIUM 140 mmol/L (135-144)
[2018-10-12 01:19] LABS: INR 2.18; PROTIME 24.3 Sec (11.9-14.9); PT RATIO 1.9
[2018-10-12 01:20] LABS: PARTIAL THROMBOPLASTIN TIME 36.5 Sec (23.0-35.0)
[2018-10-12] MEDS ORDERED: ACETAMINOPHEN 325 MG TAB PO (01:30)
[2018-10-12] MEDS ORDERED: ONDANSETRON 4 MG INJ IV ×2 (01:30→04:30)
[2018-10-12] MEDS ORDERED: NACL 0.9% 3 ML SYG IV (04:30)
[2018-10-12] MEDS ORDERED: ALBUTEROL/IPRATROPIUM (NEB) 3 ML AMP HHN (04:30)
[2018-10-12] MEDS ORDERED: GLUCOSE GEL 15 GRAM TUBE BUCCAL (05:00)
[2018-10-12] MEDS ORDERED: GLUCAGON 1 MG INJ IM (05:00)
[2018-10-12] MEDS ORDERED: DEXTROSE 50% 50 ML SYRINGE IV ×2 (05:00)
[2018-10-12] MEDS ORDERED: GLUCOSE GEL 15 GRAM TUBE PO ×2 (05:00)
[2018-10-12] MEDS: PANTOPRAZOLE (EC) 40 MG TAB PO ×2 (06:13→17:53)
[2018-10-12] MEDS: BUMETANIDE 1 MG TAB PO ×2 (06:15→17:53)
[2018-10-12] MEDS ORDERED: NON-FORMULARY/PATIENT OWN MED (Insulin Lispro (Humalog) 7 UNIT) SQ (07:55)
[2018-10-12] MEDS: INSULIN ASPART [NOVOLOG] 3 ML PEN SC ×7 (08:25→21:00)
[2018-10-12] MEDS: SUCRALFATE (100 MG/ML) 10ML CUP PO ×4 (09:39→21:07)
[2018-10-12] MEDS: SPIRONOLACTONE 25 MG TAB PO ×2 (09:48→21:07)
[2018-10-12] MEDS: LIDOCAINE 1% (MPF) 5 ML VIAL (15:18)
[2018-10-12] MEDS ORDERED: NON-FORMULARY/PATIENT OWN MED (Simvastatin* (Zocor*) 20 MG) PO (21:00)
[2018-10-12] MEDS: WARFARIN 2 MG TAB PO (21:00)
[2018-10-12] MEDS: ATORVASTATIN 10 MG TAB PO (21:07)
[2018-10-12] MEDS: INSULIN GLARGINE [LANTus] (100 UNITS/ML) SYG SC (21:12)
[2018-10-13] MEDS: ACETAMINOPHEN 325 MG TAB PO (00:39)
[2018-10-13] MEDS: ACCU-CHEK XX (02:00)
[2018-10-13] MEDS: BUMETANIDE 1 MG TAB PO (06:00)
[2018-10-13] MEDS: PANTOPRAZOLE (EC) 40 MG TAB PO (06:00)
[2018-10-13 06:33] LABS: ADD MAN DIFF? NO
[2018-10-13 06:37] LABS: WHITE BLOOD COUNT 4.9 10^3/ul (4.8-10.8)
[2018-10-13 06:37] LABS: BASOPHILS % 0.8 % (0.0-2.0); EOSINOPHILS # 0.2 10^3/ul (0.0-0.5); EOSINOPHILS % 3.5 % (0.0-7.0); HEMATOCRIT 36.4 % (37.0-47.0); HEMOGLOBIN 10.9 g/dl (12.0-16.0); LYMPHOCYTES % 20.9 % (15.0-51.0); MEAN CORPUSCULAR HEMOGLOBIN 27.8 pg (29.0-33.0); MEAN CORPUSCULAR HGB CONC 29.9 g/dl (32.0-37.0); MEAN CORPUSCULAR VOLUME 92.9 fl (82.0-101.0); MEAN PLATELET VOLUME 10.4 fl (7.4-10.4); MONOCYTE # 0.6 10^3/ul (0.3-0.9); MONOCYTES % 11.9 % (0.0-11.0); NEUTROPHIL # 3.1 10^3/ul (1.6-7.5); NEUTROPHILS % 62.5 % (39.0-77.0); PLATELET COUNT 245 10^3/UL (140-415); RED BLOOD COUNT 3.92 10^6/ul (4.20-5.40); RED CELL DISTRIBUTION WIDTH 14.6 % (11.5-14.5)
[2018-10-13 06:59] LABS: INR 2.32; PROTIME 25.5 Sec (11.9-14.9)
[2018-10-13 07:36] LABS: PHOSPHORUS 4.9 mg/dl (2.5-4.9)
[2018-10-13 07:41] LABS: ALANINE AMINOTRANSFERASE 18 IU/L (13-69); ALBUMIN 3.2 g/dl (3.3-4.9); ALKALINE PHOSPHATASE 90 IU/L (42-121); ANION GAP 9 (5-13); ASPARTATE AMINO TRANSFERASE 28 IU/L (15-46); BILIRUBIN,INDIRECT 0.6 mg/dl (0-1.1); BILIRUBIN,TOTAL 0.6 mg/dl (0.2-1.3); BLOOD UREA NITROGEN 25 mg/dl (7-20); CALCIUM 8.8 mg/dl (8.4-10.2); CARBON DIOXIDE 28 mmol/L (21-31); CHLORIDE 104 mmol/L (97-110); Estimated GFR 52 mL/min (>60); GLUCOSE 125 mg/dl (70-220); MAGNESIUM 1.7 mg/dl (1.7-2.5); POTASSIUM 4.3 mmol/L (3.5-5.1); SODIUM 141 mmol/L (135-144); TOTAL PROTEIN 6.4 g/dl (6.1-8.1)
[2018-10-13] MEDS: INSULIN ASPART [NOVOLOG] 3 ML PEN SC ×4 (07:55→13:10)
[2018-10-13] MEDS: SUCRALFATE (100 MG/ML) 10ML CUP PO ×2 (08:47→13:05)
[2018-10-13] MEDS: SPIRONOLACTONE 25 MG TAB PO (08:48)
[2018-10-13] MEDS ORDERED: WARFARIN 2 MG TAB PO (17:00)
== END 2018-10-13 15:20 | disposition home or self-care (01) | DRG 433 ==
LOC: E/R 21:47 → TEL 10-12 03:21
PROC: 0W9G3ZZ Drainage of Peritoneal Cavity, Percutaneous Approach (ICD-10-PCS; principal; 2018-10-12)
DX: K74.69 Other cirrhosis of liver (principal); R18.8 Other ascites; K75.81 Nonalcoholic steatohepatitis (NASH); E11.9 Type 2 diabetes mellitus without complications; I48.0 Paroxysmal atrial fibrillation; Z79.01 Long term (current) use of anticoagulants; Z95.2 Presence of prosthetic heart valve
CPT/HCPCS: 71045; 80048; 80053; 82962; 83735; 84100; 85025; 85610; 85730; 99285-25